=== PATIENT | male | born 1970 | race Hispanic/Latino ===

== ENCOUNTER 2017-08-08 08:28 | Inpatient (IN) | payer MEDICARE, MEDICAID ==
[2017-08-08 08:43] VITALS: BMI 19.5
[2017-08-08 09:11] LABS: BASO # 0.03 K/mm3 (0.0-2.0); BASO % 0.1 % (0.0-3.0); EOS % 0.1 % (1.5-5.0); GRAN # 19.6 (1.4-6.5); GRAN % 85.1 % (50.0-68.0); HEMOGLOBIN 11.7 g/dL (14.0-18.0); LYMPH # 2.1 (1.2-3.4); LYMPH % 9.3 % (22.0-35.0); MEAN CELL VOLUME 93.4 fl (80.0-105.0); MEAN CORPUSCULAR HEMOGLOBIN 32.3 pg (25.0-35.0); MEAN CORPUSCULAR HGB CONC 34.6 g/dl (31.0-37.0); MEAN PLATELET VOLUME 9.7 fl (7.0-11.0); MONO # 1.3 (0.1-0.6); MONO % 5.4 % (1.0-6.0); RBC 3.62 10^6/uL (3.5-6.1); RED CELL DISTRIBUTION WIDTH 13.5 % (11.5-14.5)
[2017-08-08 09:14] LABS: ALB/GLOB RATIO 1.5 (1.1-1.8); ALBUMIN 4.1 g/dL (3.0-4.8); ALT/SGPT 39 U/L (7-56); AST/SGOT 28 U/L (17-59); BLOOD UREA NITROGEN 29 mg/dL (7-21); CALCIUM 8.8 mg/dL (8.4-10.5); GFR AFRICAN-AMERICAN > 60; GFR NON-AFRICAN AMERICAN > 60
[2017-08-08 09:24] LABS: INR 0.99 (0.93-1.08); PARTIAL THROMBOPLASTIN TIME 27.5 Seconds (25.1-36.5); PROTHROMBIN TIME 11.4 SECONDS (9.4-12.5)
[2017-08-08 09:26] LABS: TROPONIN I < 0.01 ng/mL
[2017-08-08] MEDS ORDERED: Dextrose 5%/0.45% NS 1,000 ML IV SCH ×2 (09:30→09:45)
[2017-08-08 09:55] LABS: URINE BILIRUBIN NEGATIVE (NEGATIVE); URINE BLOOD NEGATIVE (NEGATIVE); URINE GLUCOSE (UA) 500 mg/dL (NEGATIVE); URINE LEUKOCYTE ESTERASE NEGATIVE Leu/uL (NEGATIVE); URINE PROTEIN 30 mg/dL (<30 mg/dL); URINE UROBILINOGEN 0.2 E.U./dL (<1 E.U./dL)
[2017-08-08 10:13] LABS: ARTERIAL BLOOD GAS HCO3 12.8 mmol/L (21-28); ARTERIAL BLOOD GAS O2 SAT 98.1 % (95-98); ARTERIAL BLOOD GAS PCO2 26 mm/Hg (35-45); ARTERIAL BLOOD GAS TCO2 13.6 mmol.L (22-28)
[2017-08-08 10:13] LABS: URINE COLOR YELLOW (YELLOW)
[2017-08-08 10:14] LABS: URINE APPEARANCE SLIGHT-CLOUDY (CLEAR)
[2017-08-08] MEDS ORDERED: Sodium Chloride 0.9% 1,000 ML IV STA (10:58)
[2017-08-08 11:00] LABS: URINE EPITHELIAL CELLS 0 - 2 /hpf (0-5); URINE RBC NEGATIVE /hpf (0-2); URINE WBC 0 - 2 /hpf (0-6)
--- NOTE | 2017-08-08 11:38 | ED PDOC ---
Arrival/HPI - General Chief Complaint: Medical Clearance Time Seen by Provider: 08/08/17 08:39 Historian: Patient, Other - History of Present Illness Narrative History of Present Illness (Text): 08/08/17 11:33 Patient is a 47 yo male with past medical history of insulin dependent diabetes , presents to the Emergency Department from cruise ship [place]" with diagnosis of diabetic ketoacidosis as per review of chart provided by [employer]. The patient is here with mother. Patient states that he "wasn't feeling well for past four days". Reportedly was feeling very tired and "didn't want to leave the ship", states he was "eating a lot". Patient reportedly felt sicker last night with nausea, loose stools, and vomiting. He denies fevers or chills. Denies bloody stools. Denies cough. Denies chest pain or shortness of breath. Patient reportedly was found to have elevated blood sugar on cruise ship with acidosis and elevated anion gap. He was reportedly given insulin bolus and drip. Patient currently states that he is hungry and thirsty. Denies any pain or discomfort. Past Medical History - Infectious Disease Hx of Infectious Diseases: None - Neurological Hx Seizures: Yes Other/Comment: Cerebral palsy - Endocrine/Metabolic Hx Diabetes Mellitus Type 1: Yes - Psychiatric Hx Substance Use: No Family/Social History Family/Social History: Unknown Family HX Smoking Status: Never Smoked Hx Alcohol Use: No Hx Substance Use: No Allergies/Home Meds Allergies/Adverse Reactions: Allergies morphine Allergy (Verified 08/08/17 18:18) RASH Home Medications: Home Meds Medication Instructions Recorded Confirmed Aspirin [Adult Low Dose Aspirin EC] 1 tab PO DAILY 08/08/17 08/08/17 Cholecalciferol (Vitamin D3) 1 tab PO DAILY 08/08/17 08/08/17 [Vitamin D3] Citalopram Hydrobromide 40 mg PO HS 08/08/17 08/09/17 [Citalopram HBr] Ibuprofen [Motrin Tab] 1 tab PO Q6H PRN 08/08/17 08/08/17 Insulin Aspart [Novolog Flexpen] 1 unit SC DAILY 08/08/17 08/08/17 Insulin Detemir [Levemir] 1 unit SC DAILY 08/08/17 08/08/17 Insulin Glargine, Recombina 16 unit SC DAILY 08/08/17 08/08/17 [Lantus] Insulin Lispro [Humalog Kwikpen 1 unit SC ACHS 08/08/17 08/08/17 U-100] Insulin Lispro [Humalog Kwikpen 1 unit SC BRK 08/08/17 08/08/17 U-100] LORazepam [Ativan] 1 tab PO PRN PRN 08/08/17 08/08/17 Lisinopril [Zestril] 5 mg PO DAILY 08/08/17 08/09/17 Phenobarbital [PHENobarbital Tab] 64.8 mg PO 2200 08/08/17 08/09/17 Rosuvastatin Calcium [Crestor] 10 mg PO HS 08/08/17 08/09/17 Carbamazepine [Carbamazepine ER] 200 mg PO BID 08/09/17 08/09/17 Carbamazepine [Carbamazepine ER] 800 mg PO BID 08/09/17 08/09/17 Famotidine [Pepcid] 40 mg PO HS 08/09/17 08/09/17 Phenobarbital [PHENobarbital Tab] 32.4 mg PO DAILY 08/09/17 08/09/17 Review of Systems - Review of Systems Constitutional: Fatigue. absent: Fevers Eyes: absent: Vision Changes ENT: absent: Hearing Changes Respiratory: absent: SOB Cardiovascular: absent: Chest Pain Gastrointestinal: Nausea, Vomiting. absent: Abdominal Pain, Constipation, Diarrhea, Hematochezia, Hematemesis, Anorexia Genitourinary Male: absent: Dysuria, Hematuria Musculoskeletal: absent: Back Pain, Neck Pain Skin: absent: Rash Neurological: Dizziness. absent: Headache, Focal Weakness, Gait Changes Endocrine: Polyuria, Polydipsia Hemo/Lymphatic: absent: Easy Bleeding Psychiatric: absent: Depression, Suicidal Ideation Physical Exam Vital Signs Reviewed: Yes Vital Signs Temp Pulse Resp BP Pulse Ox 08/08/17 15:45 78 18 142/71 100 08/08/17 11:58 97.9 F 81 17 116/53 L 99 08/08/17 08:50 97.3 F L 80 17 127/62 99 Temperature: Afebrile Blood Pressure: Normal Pulse: Regular Appearance: Positive for: Non-Toxic, Comfortable Mental Status: Positive for: Alert and Oriented X 3 Finger Stick Blood Glucose: 352 - Systems Exam Head: Present: Atraumatic Pupils: Present: Other (no acute changes in his visual acuity) Conjunctiva: No: Injected Mouth: Present: Dry Pharnyx: No: ERYTHEMA Neck: Present: Normal Range of Motion. No: Meningeal Signs Respiratory/Chest: Present: Clear to Auscultation. No: Respiratory Distress Cardiovascular: Present: Regular Rate and Rhythm Abdomen: No: Tenderness Upper Extremity: No: Cyanosis Lower Extremity: No: Edema Neurological: Present: Other (at his baseline, no acute focal weakness noted) Skin: Present: Pale Psychiatric: Present: Alert, Normal Insight, Normal Concentration Medical Decision Making ED Course and Treatment: 08/08/17 8:38 Upon arrival to the Emergency department, I reviewed patient's record provided by the [facility]. The following blood glucose levels were noted at the [facility] at the mentioned times: August 08, 2017 00:30 Blood glucose level: 467 mg/dL August 08, 2017 1:30 Blood glucose level: 390 mg/dL August 08, 2017 02:30 Blood glucose level: 271 mg/dL August 08, 2017 03:30 Blood glucose level: 217 mg/dL August 08, 2017 04:23 Blood glucose level: 184 mg/dL August 08, 2017 05:15 Blood glucose level: 218 mg/dL August 08, 2017 05:30 Blood glucose level: 225 mg/dL August 08, 2017 05:44 Blood glucose level: 238 mg/dL August 08, 2017 06:15 Blood glucose level: 277 mg/dL August 08, 2017 06:30 Blood glucose level: 268 mg/dL August 08, 2017 06:45 Blood glucose level: 268 mg/dL The following laboratory results were noted at the [facility] at the mentioned times: August 07, 2017 23:05 Hct = 41% Hb = 13.9 Creatinine= 1.1 mg/dL Glucose = 562 mg/dL Chloride= 102 mEq/l Sodium= 135 mEq/dL Potassium = 5.2 mEq/dL TCO2 = 12 mmol/L Anion gap = 27 mmol/L iCa = 1.15 mmol/L Urea nitrogen (pre-dialysis)= 34 pH= 7.168 pCO2 = 25.1 torr pO2 = 60 torr HCO3 = 9.1 mEq/L Base excess= -19 mEq/L sO2= 84 Lactate= 2.91 mg/dL August 08, 2017 01:30 Hct = 39% Hb = 13.3 MCHC= 33 g/dL Total WBC= 27.5 x10^9/L % Granulocytes = 91% % Lymphocytes+ monocytes= 9% Platelets = 377 x10^9/L Glucose = 379 mg/dL Sodium= 141 mEq/dL Potassium = 3.7 mEq/dL August 08, 2017 03:44 Hct = 34% Hb = 11.6 Glucose = 203 mg/dL Sodium= 143 mEq/dL Potassium = 3.8 mEq/dL August 08, 2017 06:05 Hct = 32% Hb = 10.9 Glucose = 229 mg/dL Sodium= 140 mEq/dL Potassium = 4.9 mEq/dL 08/08/17 12:51 I reviewed patient's record from [employer]. Insulin administration as reported FROM [employer] reviewed. Patient had been given insulin bolus and was started on insulin drip on cruise ship prior to arrival. They had held insulin drip as blood sugar had reportedly dropped to 184 on cruise ship. I reviewed history with transport team upon arrival. They states that his blood sugar was "330" prior to transport. Patient had received bolus of insulin from medics PRIOR to transport. As per review of physician note from [employer], patient was felt to have conflicting doses of insulin. THUS PATIENT WAS MONITORED CLOSELY WITH FREQUENT BLOOD SUGAR CHECK ON ARRIVAL. Patient upon arrival to the Emergency Department was found to be alert, oriented, stating he was hungry and thirsty. He denied any headache or chest pain or shortness of breath. He denies nausea or palpitations. Insulin drip had been discontinued PRIOR to arrival. As there was question of patient's prior insulin administration and patient with no nausea or discomfort , iv line established and labs obtained Labs obtained here in the ED reveals CO2 of 18. ABG reveals ph of 7.30. When compared to ship's labs this represents improvement in pH and CO2. Patient is demanding something to eat, he denies nausea pain or discomfort. He has been advised of his diagnosis of DKA, states he has had this in past. He is from [place], [place]. IV fluids ordered. Patient evaluated by pricing/signage team member in ED as I feel he is at risk for labile blood sugar and requires frequent chemistry and blood sugar checks. I consulted with scarf gluer Dr. Ellis upon arrival. I reviewed patient's labs from cruise ship and current presentation. Based on patient's drop in blood sugar noted on cruise ship reviewed, D5 1/2 NS was ordered BUT HELD pending reassessment of blood sugar due to RISK of drop in blood sugar under 200. However D51/2NS WAS NOT GIVEN as patient noted to have blood sugar of 260. Dr. Elsa Olmedo on-call physician notified of patient, he accepts patient to his service and evaluated patient in the Emergency Department. On re-evaluation, patient is requesting to eat and have "diet soda". I have explained to him risks of noncompliance with soda and have advised him he is not to have ant staff or family provide him with any soda. He is continually asking to eat and states "I want coffee where is my coffee". Leukocytosis noted. Currently afebrile. Initial lactate unremarkable. Not tachycardic or hypotensive. Continued monitoring and serial exams in the Emergency Department. On re-assessment, he is again noted to be hyperglycemic and K 5.8. Repeat chemistry suggests worsening acidosis and pricing/signage team member updated. Insulin bolus ordered. Insulin drip ordered. IV fluids ordered. Dr. Ford, ICU notified and patient will be admitted to ICU as I feel patient with labile blood sugar. Dr. Ellis, endocrincologist again notifed and updated with repeat labs and will present to ED to manage insulin and fluids. 08/08/17 13:25 08/08/17 13:30 Dr. Ellis, scarf gluer, presented to the Emergency department. Patient's most recent blood work was reviewed and Dr. Ellis was made aware of patient's potassium level of 5.5, CO2 level of 11 and serum glucose level of 547. As per Dr. Ellis's request, IV hydration has been reviewed and ordered. Patient has already received 6 units of IV regular insulin. Dr. Ellis requested additional 10 units of IV insulin and with her consultation, insulin drip has been ordered. As per scarf gluer, it is to be started at low dose algorithm. Patient to be admitted to the ICU. Patient updated with treatment plan. ICU physician updated. On re-exam, nausea resolved. Alert, conversive. Denies chest pain or shortness of breath. Heart rate 84. Blood pressure 135/69. 08/10/17 10:45 - Critical Care Critical Care Minutes: 60 minutes - Lab Interpretations Microbiology Results: Microbiology Results 08/08/17 09:45 Urine Urine Culture - Final No Growth (<1,000 CFU/ML) Lab Results: 08/08/17 08:50 08/08/17 08:50 Lab Results 08/08/17 10:53: POC Glucose (mg/dL) 352 H 08/08/17 09:52: pCO2 26 L, pO2 100.0, HCO3 12.8 L, ABG pH 7.30 L, ABG Total CO2 13.6 L, ABG O2 Saturation 98.1 H, ABG Base Excess -11.9 L, ABG Potassium 4.2, Glucose 330 H, Lactate 0.9, FiO2 21.0, Sodium 135.0, Chloride 109.0 H, Arterial Blood Potassium 4.2 08/08/17 09:45: Urine Color Yellow, Urine Appearance Slight-cloudy, Urine pH 6.0 , Ur Specific [place] 1.020, Urine Protein 30 H, Urine Glucose (UA) 500 H, Urine Ketones 40 H, Urine Blood Negative, Urine Nitrate Negative, Urine Bilirubin Negative, Urine Urobilinogen 0.2, Ur Leukocyte Esterase Negative, Urine RBC Negative, Urine WBC 0 - 2, Ur Epithelial Cells 0 - 2 08/08/17 09:13: POC Glucose (mg/dL) 264 H 08/08/17 08:50: Sodium 139, Potassium 5.2 H, Chloride 107, Carbon Dioxide 18 L, Anion Gap 19, BUN 29 H, Creatinine 0.7 L, Est GFR ( Amer) > 60, Est GFR ( Non-Af Amer) > 60, Random Glucose 292 H, Calcium 8.8, Total Bilirubin 0.3, AST 28, ALT 39, Alkaline Phosphatase 81, Lactate Dehydrogenase 401, Total Creatine Kinase 57, Troponin I < 0.01, Total Protein 6.8, Albumin 4.1, Globulin 2.8, Albumin/Globulin Ratio 1.5 08/08/17 08:50: PT 11.4, INR 0.99, APTT 27.5 08/08/17 08:50: WBC 23.0 H, RBC 3.62, Hgb 11.7 L, Hct 33.8 L, MCV 93.4, MCH 32.3 , MCHC 34.6, RDW 13.5, Plt Count 369, MPV 9.7, Gran % 85.1 H, Lymph % (Auto) 9.3 L, [place] % (Auto) 5.4, Eos % (Auto) 0.1 L, Baso % (Auto) 0.1, Gran # 19.60 H , Lymph # (Auto) 2.1, [place] # (Auto) 1.3 H, Eos # (Auto) 0.0, Baso # (Auto) 0.03 08/08/17 08:34: POC Glucose (mg/dL) 261 H - RAD Interpretation Radiology Orders: 08/08/17 08:46 CHEST PORTABLE [RAD] Stat - Medication Orders Current Medication Orders: Heparin Sodium (Porcine) (Heparin) 5,000 units SC Q8H [facility] PRN Reason: Protocol Last Admin: 08/10/17 06:16 Dose: Not Given Non-Admin Reason: Patient Refused Sodium Chloride (Sodium Chloride 0.45%) 1,000 mls @ 40 mls/hr IV .Q24H [facility] Last Admin: 08/10/17 09:55 Dose: 40 mls/hr eMAR Start Stop Document 08/10/17 09:55 DSZ (Rec: 08/10/17 09:55 DSZ [facility] [id number]) Intravenous Solution Start Date 08/10/17 Start Time 09:55 Insulin Detemir (Levemir) 18 unit SC HS [facility] Insulin Human Lispro (Humalog) 10 units SC AC [facility] Last Admin: 08/10/17 07:30 Dose: Not Given Non-Admin Reason: BP Parameters Not Met MAR Blood Glucose Document 08/10/17 07:30 DSZ (Rec: 08/10/17 10:02 DSZ [facility] [id number]) Blood Glucose Finger Stick Blood Glucose (70-120) 145 Insulin Human Lispro (Humalog Low) 0 units SC ACHS [facility] PRN Reason: Protocol Last Admin: 08/10/17 07:49 Dose: Not Given Non-Admin Reason: Blood Sugar Parameter Carbamazepine [ Carbamazepine Er] 400 Mg 800 mg PO Q12 [facility] Last Admin: 08/10/17 09:58 Dose: 800 mg Carbamazepine [ Carbamazepine Er] 200 Mg 200 mg PO Q12 [facility] Last Admin: 08/10/17 10:01 Dose: 200 mg Pantoprazole Sodium (Protonix Ec Tab) 40 mg PO 0600 [facility] Last Admin: 08/10/17 10:00 Dose: 40 mg Phenobarbital (Phenobarbital Tab) 64.8 mg PO 2200 [facility] Last Admin: 08/09/17 22:57 Dose: 64.8 mg Behavioural Document 08/09/17 22:57 IMT (Rec: 08/09/17 22:57 IMT [id number]) Maintenance Maintenance Dose Yes Nonmedicinal Nonmedicinal Interventions Redirect Behavior Behavior for Medication: Anxiety Insomnia Re-Assess: Reassess Psych Meds Document 08/09/17 23:57 IMT (Rec: 08/10/17 03:46 [id number]) Reassess Psych Med Effective Phenobarbital (Phenobarbital Tab) 32.4 mg PO DAILY [facility] Last Admin: 08/10/17 09:59 Dose: 32.4 mg Behavioural Document 08/10/17 09:59 DSZ (Rec: 08/10/17 09:59 DSZ [facility] [id number]) Maintenance Maintenance Dose Yes Behavior Behavior Comment seizure Discontinued Medications Dextrose (Dextrose 50% Inj) 50 ml IVP STAT STA Stop: 08/10/17 06:39 Last Admin: 08/10/17 06:42 Dose: 50 ml IVP Administration Document 08/10/17 06:42 IMT (Rec: 08/10/17 06:42 [id number][facility] Charges for Administration # of IVP Administrations 1 Dextrose/Sodium Chloride (Dextrose 5%/0.45% Ns 1000 Ml) 1,000 mls @ 200 mls/hr IV .Q5H [facility] Last Admin: 08/08/17 09:42 Dose: 200 mls/hr eMAR Start Stop Document 08/08/17 09:42 GMD (Rec: 08/08/17 09:43 GMD [id number]) Intravenous Solution Start Date 08/08/17 Start Time 09:42 End Date 08/08/17 End time 10:15 Total Infusion Time 33 Sodium Chloride (Sodium Chloride 0.9%) 1,000 mls @ 1,000 mls/hr IV .Q1H STA Stop: 08/08/17 11:57 Last Admin: 08/08/17 11:35 Dose: 1,000 mls/hr eMAR Start Stop Document 08/08/17 11:35 GMD (Rec: 08/08/17 11:35 GMD [id number]) Intravenous Solution Start Date 08/08/17 Start Time 11:35 End Date 08/08/17 End time 12:35 Total Infusion Time 60 Insulin Human Regular 100 (units/ Sodium Chloride) 100 mls @ 6 mls/hr IV .[id number] PRN; Protocol; 6 UNITS/HR PRN Reason: TITRATE PER MD ORDER Last Titration: 08/08/17 22:00 Dose: 0 units/hr, 0 mls/hr Titration Intervention Document 08/08/17 22:00 AOM (Rec: 08/09/17 07:51 AOM [id number]) Titration Intake Titration Intake 1.5 Cumulative Intake 16.5 Cumulative Intake (Rx) 16.5 Waste Amount 0 Container Volume 83.5 Titration Dosing Titration Dose 0 IV Rate 0 Intake/Decrease Paused Cumulative Dose 16.5 Sodium Chloride (Sodium Chloride 0.9%) 1,000 mls @ 150 mls/hr IV .Q6H40M [facility] Last Admin: 08/08/17 16:20 Dose: 150 mls/hr eMAR Start Stop Document 08/08/17 16:20 RAMOM (Rec: 08/08/17 16:20 RAMOM [id number]) Intravenous Solution Start Date 08/08/17 Start Time 16:00 Ceftriaxone Sodium (Rocephin 1 Gram Ivpb) 1 gm in 100 mls @ 100 mls/hr IVPB DAILY [facility] PRN Reason: Protocol Last Admin: 08/10/17 09:55 Dose: 100 mls/hr eMAR Start Stop Document 08/10/17 09:55 DSZ (Rec: 08/10/17 09:55 DSZ [id number]) Intravenous Solution Start Date 08/10/17 Start Time 09:55 Dextrose/Sodium Chloride (Dextrose 5%/0.9% Ns 1000 Ml) 1,000 mls @ 150 mls/hr IV .Q6H40M [facility] Last Admin: 08/08/17 22:00 Dose: 150 mls/hr eMAR Start Stop Document 08/08/17 22:00 AOM (Rec: 08/08/17 22:02 AOM [id number]) Intravenous Solution Start Date 08/08/17 Start Time 22:00 End Date 08/09/17 Insulin Detemir (Levemir) 15 unit SC [facility] Last Admin: 08/08/17 22:31 Dose: 15 u MAR Blood Glucose Document 08/08/17 22:31 AOM (Rec: 08/08/17 22:32 AOM [id number]) Blood Glucose Finger Stick Blood Glucose (70-120) 129 Subcutaneous Administrations Document 08/08/17 22:31 AOM (Rec: 08/08/17 22:32 AOM [id number]) Injection Site MAR Injection Site Left Arm Charges for Administration # of Subcutaneous Administrations 1 Insulin Detemir (Levemir) 20 unit SC [facility] Last Admin: 08/09/17 22:54 Dose: 20 units MAR Blood Glucose Document 08/09/17 22:54 IMT (Rec: 08/09/17 22:54 IMT [id number]) Blood Glucose Finger Stick Blood Glucose (70-120) 157 Subcutaneous Administrations Document 08/09/17 22:54 IMT (Rec: 08/09/17 22:54 IMT [id number]) Injection Site MAR Injection Site Left Arm Charges for Administration # of Subcutaneous Administrations 1 Insulin Human Regular (Humulin R) 6 units IV STAT STA Stop: 08/08/17 12:50 Last Admin: 08/08/17 13:02 Dose: 6 unit eMAR Start Stop Document 08/08/17 13:02 GMD (Rec: 08/08/17 13:02 GMD [id number]) Intravenous Solution Start Date 08/08/17 Start Time 13:02 Insulin Human Regular (Humulin R) 10 units IV STAT STA Stop: 08/08/17 13:33 Last Admin: 08/08/17 13:59 Dose: 10 unit eMAR Start Stop Document 08/08/17 13:59 GMD (Rec: 08/08/17 13:59 GMD [id number]) Intravenous Solution Start Date 08/08/17 Start Time 13:59 Insulin Human Regular (Humulin R Med) 0 units SC [facility] PRN Reason: Protocol Last Admin: 08/09/17 11:37 Dose: 7 units MAR Blood Glucose Document 08/09/17 11:37 RAMOM (Rec: 08/09/17 11:37 RAMOM [id number]) Blood Glucose Finger Stick Blood Glucose (70-120) 342 Subcutaneous Administrations Document 08/09/17 11:37 RAMOM (Rec: 08/09/17 11:37 RAMOM [id number] Injection Site MAR Injection Site Right Arm Charges for Administration # of Subcutaneous Administrations 1 Ondansetron HCl (Zofran Inj) 4 mg IVP ONCE ONE Stop: 08/08/17 13:37 Last Admin: 08/08/17 13:59 Dose: 4 mg IVP Administration Document 08/08/17 13:59 GMD (Rec: 08/08/17 13:59 GMD [id number]) Charges for Administration # of IVP Administrations 1 Phenobarbital (Phenobarbital Tab) 64.8 mg PO [facility] Last Admin: 08/08/17 22:59 Dose: 64.8 mg Behavioural Document 08/08/17 22:59 AOM (Rec: 08/08/17 23:00 AOM [id number]) Maintenance Maintenance Dose Yes Nonmedicinal Nonmedicinal Interventions Give food/fluids Re-Assess: Reassess Psych Meds Document 08/08/17 23:59 AOM (Rec: 08/09/17 01:05 AOM [id number]) Reassess Psych Med Effective Pneumococcal Polyvalent Vaccine (Pneumovax 23 Vaccine) 0.5 ml IM .ONCE ONE Stop: 08/08/17 20:33 Potassium Chloride (K-Dur 20 Meq Er Tab) 20 meq PO ONCE ONE Stop: 08/09/17 08:29 Last Admin: 08/09/17 09:34 Dose: 20 meq Potassium Chloride (K-Dur 20 Meq Er Tab) 20 meq PO ONCE ONE Stop: 08/10/17 08:22 Last Admin: 08/10/17 09:59 Dose: 20 meq Sodium Polystyrene Sulfonate (Kayexalate Susp) 15 gm PO ONCE ONE Stop: 08/08/17 15:02 Last Admin: 08/08/17 15:40 Dose: 15 gm - Scribe Statement The provider has reviewed the documentation as recorded by the Cindyibe Chalo Genao. All medical record entries made by the Cindyibana maria were at my direction and personally dictated by me. I have reviewed the chart and agree that the record accurately reflects my personal performance of the history, physical exam, medical decision making, and the department course for this patient. I have also personally directed, reviewed, and agree with the discharge instructions and disposition. Disposition/Present on Arrival - Present on Arrival Any Indicators Present on Arrival: Yes History of DVT/PE: No History of Uncontrolled Diabetes: Yes Urinary Catheter: No History of Decub. Ulcer: No History Surgical Site Infection Following: None - Disposition Have Diagnosis and Disposition been Completed?: Yes Diagnosis: Diabetic ketoacidosis, Hyperglycemia, Leukocytosis Disposition: HOSPITALIZED Disposition Time: 10:30 Patient Plan: Admission, ICU Patient Problems: Current Active Problems Problem Status Onset Diabetic ketoacidosis Acute Hyperglycemia Acute Leukocytosis Acute Condition: CRITICAL
--- NOTE | 2017-08-08 11:49 | CARD ---
APPROVED REPORT EKG Measurement Heart [id number] <Conclusion> Normal sinus rhythm Normal ECG
[2017-08-08] MEDS ORDERED: Insulin Regular 1 UNITS/0.01 ML ML IV STA ×2 (12:49→13:32)
[2017-08-08] MEDS ORDERED: Insulin Regular 100 UNITS in Sodium Chloride 0.9% 99 ML IV PRN (12:55)
--- NOTE | 2017-08-08 12:55 | CON ---
DATE: 08/08/2017 HISTORY OF PRESENT ILLNESS: The patient is seen and examined at bedside. This is a 47-year-old gentleman with longstanding history of diabetes type 1, who did not feel very well over the last few days when he was on a cruise ship and was found to have highly elevated blood glucose. He received insulin drip, which appears to be more than needed based on ship record and was taken to [facility] for further management and monitoring. No nausea. No vomiting. No diarrhea. No constipation. In fact, the patient is eating and drinking at the time of evaluation by ICU. Out of concern for insulin "overdose" in the setting of potential DKA, ICU consult was called. PAST MEDICAL HISTORY: Diabetes type 1. FAMILY HISTORY: Noncontributory. ALLERGIES: MORPHINE. SOCIAL HISTORY: No alcohol or illicit drug abuse. No tobacco smoking. PHYSICAL EXAMINATION: ENT: Head and neck atraumatic. LUNGS: Clear to auscultation bilaterally. HEART: Regular rate and rhythm. S1 and S2 normal. ABDOMEN: Soft, nontender and nondistended. MUSCULOSKELETAL: The patient has muscle contraction in the right upper extremity. SKIN: Moist. PSYCH: The patient is alert, awake and oriented x3, comfortable. LABORATORY DATA: WBC 23, hemoglobin 11.7, platelet count 369. Sodium 139, potassium 5.2, chloride 107, carbon dioxide 18, BUN 29, creatinine 0.7. Glucose 264; however, on blood gas, glucose 330. INR 0.99, PTT 27.5. Urine is negative for leukocyte esterase and nitrites. ABG showed 7.3/26/100. Lactic acid 0.9. Chest x-ray: No acute pulmonary disease. ASSESSMENT AND PLAN: This is 47-year-old gentleman, who presented with poorly-controlled diabetes/DKA, who was started on insulin drip on the ship ; however, they were not able to achieve their goals and the patient was taken to [facility] for further management and evaluation. At present time, the patient's blood glucose is mildly to moderately elevated. His anion gap is 14, which is slightly elevated. However; his pH essentially improved from 7.1 according to ship records to 7.3 (presently). His potassium is slightly elevated at 5.2. I would give him insulin 10 units IV and then recheck his Accu-Chek. Once they are done, I would repeat chemistry and ABG. I would continue with IV fluid rehydration and oral hydration and if repeated chemistry revealed narrowing anion gap to below 14, then I would proceed with longer-acting subcutaneous formulation of insulin. I would continue with Accu-Chek every 2-4 hours and BMP every 6-8 hours. Leukocytosis can be reactive. There is no clear source of potential infection (CXR-NAPD, abdo exam is benign, UA-no LE nor UN, no lactic acidosis). I think risk of starting empiric antibiotics at present time higher than holding them off (e.g C. diff colitis, emergence of resistance pathogens etc). However, blood culture, urine culture could be sent. We will continue with deep venous thrombosis, gastrointestinal prophylaxis. Addendum: was called by ER physicians, who reported that BG started trending up and patient became less comfortable-->will take patient to icu, start insulin drip (held by ER), IVF/NS, BMP q4, accucheck q1h. Once AG closed-->switched to sc longer acting insulin. dvt/gi prophylaxis ccm time 40 min Eugene Ford MD RITA
[2017-08-08] MEDS ORDERED: Sodium Chloride 0.9% 1,000 ML IV SCH (13:15)
[2017-08-08 13:21] LABS: ALB/GLOB RATIO 1.7 (1.1-1.8); ALBUMIN 4.2 g/dL (3.0-4.8); ALT/SGPT 46 U/L (7-56); AST/SGOT 55 U/L (17-59); BLOOD UREA NITROGEN 27 mg/dL (7-21); CALCIUM 8.9 mg/dL (8.4-10.5); GFR AFRICAN-AMERICAN > 60; GFR NON-AFRICAN AMERICAN > 60
[2017-08-08] MEDS ORDERED: Sod Polystyrene Sulf 15 gm/60 ml Susp PO ONE (15:01)
[2017-08-08 16:06] LABS: BLOOD UREA NITROGEN 26 mg/dL (7-21); CALCIUM 8.4 mg/dL (8.4-10.5); GFR AFRICAN-AMERICAN > 60; GFR NON-AFRICAN AMERICAN > 60
[2017-08-08] MEDS: cefTRIAXone 1 gm 1 GM/100 ML BAG IVPB SCH (16:22)
[2017-08-08] MEDS ORDERED: Insulin Reg-MEDIUM-Coverage SC SCH (16:30)
--- NOTE | 2017-08-08 16:57 | RAD ---
HISTORY: weakness COMPARISON: No prior. FINDINGS: LUNGS: Lung jones are clear. There is a tubular, catheter like structure overlying the right medial lung apex and upper lung field of uncertain etiology. This could conceivably represent a catheter remnant. Follow-up CT scan could be performed further evaluation. There is also a battery pack overlying the left lateral upper midchest within a metallic lead extends superiorly over the base of the neck on the left side. PLEURA: No significant pleural effusion identified, no pneumothorax apparent. CARDIOVASCULAR: Normal. OSSEOUS STRUCTURES: No significant abnormalities. VISUALIZED UPPER ABDOMEN: Normal. OTHER FINDINGS: None. IMPRESSION: Lung jones are clear. There is a tubular, catheter like structure overlying the right medial lung apex and upper lung field of uncertain etiology. This could conceivably represent a catheter remnant. Follow-up CT scan could be performed further evaluation. There is also a battery pack overlying the left lateral upper midchest within a metallic lead extends superiorly over the base of the neck on the left side.
[2017-08-08 18:13] LABS: BLOOD UREA NITROGEN 23 mg/dL (7-21); CALCIUM 8.3 mg/dL (8.4-10.5); GFR AFRICAN-AMERICAN > 60; GFR NON-AFRICAN AMERICAN > 60
[2017-08-08] MEDS ORDERED: Pneumococcal 23-Valent Vaccine IM ONE (20:32)
[2017-08-08] MEDS ORDERED: Dextrose 5%/0.9% NS 1,000 ML IV SCH (21:15)
[2017-08-08 21:28] LABS: BLOOD UREA NITROGEN 22 mg/dL (7-21); CALCIUM 8.3 mg/dL (8.4-10.5); GFR AFRICAN-AMERICAN > 60; GFR NON-AFRICAN AMERICAN > 60
[2017-08-08] MEDS ORDERED: Insulin Detemir 100 units/ml Vial (Levemir) SC SCH (22:00)
[2017-08-08] MEDS: Insulin Reg-MEDIUM-Coverage SC SCH (22:28)
[2017-08-09 01:25] LABS: BLOOD UREA NITROGEN 22 mg/dL (7-21); CALCIUM 7.8 mg/dL (8.4-10.5); GFR AFRICAN-AMERICAN > 60; GFR NON-AFRICAN AMERICAN > 60
--- NOTE | 2017-08-09 02:52 | CON ---
ENDOCRINOLOGY CONSULTATION LOCATION: In ICU 129, room 3. HISTORY OF PRESENT ILLNESS: This is a 47-year-old male with known history of type 1 insulin-dependent diabetes, presenting here with intractable nausea, dyspepsia and vomiting, and actually a passenger in a cruise-liner, is being admitted here to ICU for further evaluation and management of diabetic ketoacidosis. PAST MEDICAL HISTORY: As mentioned above, history of type 1 insulin-dependent diabetes, on Levemir taken as 14 units subcu once daily in the morning and has a sliding scale for Humalog insulin given before each meal as noted. He admits however to extremes of glycemic fluctuations over the last few weeks prior to admission as noted. History of hypertension and dyslipidemia. FAMILY HISTORY: Positive for hypertension and diabetes. SOCIAL HISTORY: The patient has a supportive family. No known substance use. REVIEW OF SYSTEMS: As mentioned above, admits to generalized body weakness with progressive bouts of dizziness and lightheadedness with bifrontal headaches and visual blurring worse on the day of admission. No chest pains or palpitations or PND. His oral intake has been nil and suboptimal, with supervening nausea, dyspepsia and intractable vomiting. Also admits to marked polyuria, nocturia and polydipsia. PHYSICAL EXAMINATION: GENERAL: A male, in no apparent distress. VITAL SIGNS: With a blood pressure of 140/80, pulse of 100 beats per minute and regular, temperature 98, respirations 20, height is 5 feet 7 inches, weight is 125 pounds. HEENT: Head normocephalic. Eyes anicteric with pink conjunctivae. Funduscopy not possible at this time. Ears, nose and throat otherwise normal. NECK: Supple. Thyroid gland is normal in size. No carotid bruits or cervical adenopathy. CARDIOPULMONARY: Adynamic precordium. S1 and S2 is rapid and regular. Lungs are clear to auscultation. ABDOMEN: Flat, soft with positive bowel sounds. EXTREMITIES: No peripheral edema. Pulses are +2 bilaterally. LABORATORY: The latest chemistry showed a BUN of 27, sodium 136, potassium 5.8, chloride 103, CO2 of 11. Glucose is 547 and creatinine 0.8. Initial CO2 actually was 18 following hydration as noted on admission. ASSESSMENT: This is a 47-year-old male with uncontrolled and decompensated type 1 insulin-dependent diabetes presenting here with diabetic ketoacidosis and dehydration as noted. PLAN: Plan of management will clearly need vigorous IV hydration with normal saline infusion as ordered, with concomitant initiation of an insulin drip infusion and detailed orders have been given. Discussed plan of care with the Emergency Room physician, Dr. Allen, regarding the aforementioned plan of care. We will obtain serial chemistries and supplement accordingly as needed. As his oral intake improves and also as his acidosis resolves to at least CO2 of above 18 to 20, then may discontinue the insulin drip and switch him over to a more physiologic basal and bolus insulin drug combination as indicated. We will obtain serial chemistries and supplement accordingly as needed. We will follow with you. Winnie Ellis MD
[2017-08-09] MEDS: Pantoprazole 40 mg EC Tab PO SCH (06:08)
[2017-08-09 06:32] LABS: HEMOGLOBIN 10.2 g/dL (14.0-18.0); MEAN CELL VOLUME 91.9 fl (80.0-105.0); MEAN CORPUSCULAR HEMOGLOBIN 31.8 pg (25.0-35.0); MEAN CORPUSCULAR HGB CONC 34.6 g/dl (31.0-37.0); MEAN PLATELET VOLUME 9.4 fl (7.0-11.0); RBC 3.21 10^6/uL (3.5-6.1); RED CELL DISTRIBUTION WIDTH 13.5 % (11.5-14.5)
[2017-08-09 06:34] LABS: ALB/GLOB RATIO 1.2 (1.1-1.8); ALBUMIN 3.1 g/dL (3.0-4.8); ALT/SGPT 71 U/L (7-56); AST/SGOT 71 U/L (17-59); BLOOD UREA NITROGEN 21 mg/dL (7-21); CALCIUM 8.1 mg/dL (8.4-10.5); GFR AFRICAN-AMERICAN > 60; GFR NON-AFRICAN AMERICAN > 60; HDL CHOLESTEROL 66 mg/dL (29-60)
[2017-08-09 06:40] LABS: LDL CHOLESTEROL 60 mg/dL (0-129)
[2017-08-09] MEDS: Insulin Reg-MEDIUM-Coverage SC SCH ×2 (07:52→11:37)
[2017-08-09] MEDS ORDERED: Potassium Chloride 20 mEq ER Tab PO ONE (08:28)
[2017-08-09] MEDS: cefTRIAXone 1 gm 1 GM/100 ML BAG IVPB SCH (09:33)
[2017-08-09] MEDS ORDERED: CARBAMAZEPINE PO SCH ×3 (10:00→10:15)
[2017-08-09] MEDS ORDERED: CARBAMAZEPINE 200 MG PO SCH ×2 (10:15→22:00)
--- NOTE | 2017-08-09 10:45 | CP.CCUPN ---
<Tamara Jackson - Last Filed: 08/09/17 13:58> CCU Subjective - Physician Review Subjective (Free Text): 08/09/17 10:44 Pt seen comfortable. No acute complaint. tolerate breakfast CCU Objective - Vital Signs / Intake & Output Vital Signs (Last 4 hours): Vital Signs Pulse Resp BP Pulse Ox 08/09/17 09:00 75 20 132/63 08/09/17 08:00 65 25 H 112/50 L 100 08/09/17 07:00 57 L 19 138/81 99 Intake and Output (Last 8hrs): Intake & Output 08/08/17 08/09/17 08/09/17 22:59 06:59 14:59 Intake Total 596.5 1457 Output Total 700 700 Balance -103.5 757 Weight 125 lb Intake: IV 476.5 607 0.9 NS 450 600 insulin 10 7 Oral 120 850 Output: Urine 700 700 Urine, Voided 700 700 Other: Voiding Method Urinal # Voids Urine, Voided 2 # Bowel Movements 0 0 - Physical Exam Head: Positive for: Atraumatic Pupils: Positive for: Other (no acute changes in his visual acuity; strabismus) Conjunctiva: Negative for: Injected Mouth: Positive for: Moist Mucous Membranes Pharnyx: Negative for: ERYTHEMA Neck: Positive for: Normal Range of Motion. Negative for: Meningeal Signs Respiratory/Chest: Positive for: Clear to Auscultation. Negative for: Respiratory Distress Cardiovascular: Positive for: Regular Rate and Rhythm Abdomen: Negative for: Tenderness Upper Extremity: Negative for: Cyanosis Lower Extremity: Negative for: Edema Neurological: Positive for: Other (at his baseline, no acute focal weakness noted; some contracture in R UE/thinner leg R, chronic) Skin: Positive for: Pale Psychiatric: Positive for: Alert, Normal Insight, Normal Concentration - Medications Active Medications: Active Medications Generic Name Dose Route Start Last Admin Trade Name Freq PRN Reason Stop Dose Admin Heparin Sodium (Porcine) 5,000 units 08/08/17 13:15 08/09/17 06:07 Heparin SC 5,000 units Q8H [facility] Administration Protocol Ceftriaxone Sodium 1 gm in 100 mls @ 100 mls/hr 08/08/17 15:15 08/09/17 09:33 Rocephin 1 Gram Ivpb IVPB 100 mls/hr DAILY [facility] Administration Protocol Insulin Detemir 15 unit 08/08/17 22:00 08/08/17 22:31 Levemir SC 15 u HS [facility] Administration Insulin Human Regular 0 units 08/08/17 22:00 08/09/17 07:52 Humulin R Med SC Not Given ACHS [facility] Protocol Carbamazepine [ 800 mg 08/09/17 10:30 Carbamazepine Er] PO 400 Mg Q12 [facility] Carbamazepine [ 200 mg 08/09/17 10:30 Carbamazepine Er] PO 200 Mg Q12 [facility] Pantoprazole Sodium 40 mg 08/09/17 06:00 08/09/17 06:08 Protonix Ec Tab PO 40 mg 0600 [facility] Administration Phenobarbital 64.8 mg 08/09/17 22:00 Phenobarbital Tab PO 2200 [facility] Phenobarbital 32.4 mg 08/09/17 10:30 08/09/17 10:36 Phenobarbital Tab PO 32.4 mg DAILY [facility] Administration - Patient Studies Lab Studies: Lab Studies 08/09/17 08/09/17 08/09/17 Range/Units 07:32 06:00 06:00 WBC (4.5-11.0) 10^3/ul RBC (3.5-6.1) 10^6/uL Hgb (14.0-18.0) g/dL Hct (42.0-52.0) % MCV (80.0-105.0) fl MCH (25.0-35.0) pg MCHC (31.0-37.0) g/dl RDW (11.5-14.5) % Plt Count (120.0-450.0) 10^3/uL MPV (7.0-11.0) fl Sodium 140 (132-148) mmol/L Potassium 3.5 L (3.6-5.0) mmol/L Chloride 108 H (98-107) mmol/L Carbon Dioxide 24 (21-33) mmol/L Anion Gap 11 (10-20) BUN 21 (7-21) mg/dL Creatinine 0.6 L (0.8-1.5) mg/dl Est GFR ( Amer) > 60 Est GFR (Non-Af Amer) > 60 POC Glucose (mg/dL) 142 H (65-110) mg/dL Random Glucose 187 H (70-110) mg/dL Calcium 8.1 L (8.4-10.5) mg/dL Phosphorus 2.2 L (2.5-4.5) mg/dL Total Bilirubin 0.2 (0.2-1.3) mg/dL AST 71 H D (17-59) U/L ALT 71 H (7-56) U/L Alkaline Phosphatase 63 (38-126) U/L Total Protein 5.8 (5.8-8.3) g/dL Albumin 3.1 (3.0-4.8) g/dL Globulin 2.6 gm/dL Albumin/Globulin Ratio 1.2 (1.1-1.8) Triglycerides 89 (35-160) mg/dL Cholesterol 143 (130-200) mg/dL LDL Cholesterol Direct 60 (0-129) mg/dL HDL Cholesterol 66 H (29-60) mg/dL TSH 3rd Generation 3.40 (0.46-4.68) mIU/mL 08/09/1718 08/09/17 Range/Units 06:00 05:22 02:57 WBC 14.0 H D (4.5-11.0) 10^3/ul RBC 3.21 L (3.5-6.1) 10^6/uL Hgb 10.2 L (14.0-18.0) g/dL Hct 29.5 L (42.0-52.0) % MCV 91.9 (80.0-105.0) fl MCH 31.8 (25.0-35.0) pg MCHC 34.6 (31.0-37.0) g/dl RDW 13.5 (11.5-14.5) % Plt Count 302 (120.0-450.0) 10^3/uL MPV 9.4 (7.0-11.0) fl Sodium (132-148) mmol/L Potassium (3.6-5.0) mmol/L Chloride (98-107) mmol/L Carbon Dioxide (21-33) mmol/L Anion Gap (10-20) BUN (7-21) mg/dL Creatinine (0.8-1.5) mg/dl Est GFR ( Amer) Est GFR (Non-Af Amer) POC Glucose (mg/dL) 210 H 262 H (65-110) mg/dL Random Glucose (70-110) mg/dL Calcium (8.4-10.5) mg/dL Phosphorus (2.5-4.5) mg/dL Total Bilirubin (0.2-1.3) mg/dL AST (17-59) U/L ALT (7-56) U/L Alkaline Phosphatase (38-126) U/L Total Protein (5.8-8.3) g/dL Albumin (3.0-4.8) g/dL Globulin gm/dL Albumin/Globulin Ratio (1.1-1.8) Triglycerides (35-160) mg/dL Cholesterol (130-200) mg/dL LDL Cholesterol Direct (0-129) mg/dL HDL Cholesterol (29-60) mg/dL TSH 3rd Generation (0.46-4.68) mIU/mL 08/09/17 08/09/17 08/08/17 Range/Units 01:00 00:03 22:13 WBC (4.5-11.0) 10^3/ul RBC (3.5-6.1) 10^6/uL Hgb (14.0-18.0) g/dL Hct (42.0-52.0) % MCV (80.0-105.0) fl MCH (25.0-35.0) pg MCHC (31.0-37.0) g/dl RDW (11.5-14.5) % Plt Count (120.0-450.0) 10^3/uL MPV (7.0-11.0) fl Sodium 136 (132-148) mmol/L Potassium 4.1 (3.6-5.0) mmol/L Chloride 105 (98-107) mmol/L Carbon Dioxide 21 (21-33) mmol/L Anion Gap 14 (10-20) BUN 22 H (7-21) mg/dL Creatinine 0.7 L (0.8-1.5) mg/dl Est GFR ( Amer) > 60 Est GFR (Non-Af Amer) > 60 POC Glucose (mg/dL) 282 H 129 H (65-110) mg/dL Random Glucose 321 H* D (70-110) mg/dL Calcium 7.8 L (8.4-10.5) mg/dL Phosphorus (2.5-4.5) mg/dL Total Bilirubin (0.2-1.3) mg/dL AST (17-59) U/L ALT (7-56) U/L Alkaline Phosphatase (38-126) U/L Total Protein (5.8-8.3) g/dL Albumin (3.0-4.8) g/dL Globulin gm/dL Albumin/Globulin Ratio (1.1-1.8) Triglycerides (35-160) mg/dL Cholesterol (130-200) mg/dL LDL Cholesterol Direct (0-129) mg/dL HDL Cholesterol (29-60) mg/dL TSH 3rd Generation (0.46-4.68) mIU/mL 08/08/17 08/08/17 08/08/17 Range/Units 21:12 21:05 20:10 WBC (4.5-11.0) 10^3/ul RBC (3.5-6.1) 10^6/uL Hgb (14.0-18.0) g/dL Hct (42.0-52.0) % MCV (80.0-105.0) fl MCH (25.0-35.0) pg MCHC (31.0-37.0) g/dl RDW (11.5-14.5) % Plt Count (120.0-450.0) 10^3/uL MPV (7.0-11.0) fl Sodium 141 (132-148) mmol/L Potassium 3.9 (3.6-5.0) mmol/L Chloride 109 H (98-107) mmol/L Carbon Dioxide 21 (21-33) mmol/L Anion Gap 15 (10-20) BUN 22 H (7-21) mg/dL Creatinine 0.6 L (0.8-1.5) mg/dl Est GFR ( Amer) > 60 Est GFR (Non-Af Amer) > 60 POC Glucose (mg/dL) 153 H 189 H (65-110) mg/dL Random Glucose 171 H (70-110) mg/dL Calcium 8.3 L (8.4-10.5) mg/dL Phosphorus (2.5-4.5) mg/dL Total Bilirubin (0.2-1.3) mg/dL AST (17-59) U/L ALT (7-56) U/L Alkaline Phosphatase (38-126) U/L Total Protein (5.8-8.3) g/dL Albumin (3.0-4.8) g/dL Globulin gm/dL Albumin/Globulin Ratio (1.1-1.8) Triglycerides (35-160) mg/dL Cholesterol (130-200) mg/dL LDL Cholesterol Direct (0-129) mg/dL HDL Cholesterol (29-60) mg/dL TSH 3rd Generation (0.46-4.68) mIU/mL 08/08/17 08/08/17 08/08/17 Range/Units 18:57 18:05 17:30 WBC (4.5-11.0) 10^3/ul RBC (3.5-6.1) 10^6/uL Hgb (14.0-18.0) g/dL Hct (42.0-52.0) % MCV (80.0-105.0) fl MCH (25.0-35.0) pg MCHC (31.0-37.0) g/dl RDW (11.5-14.5) % Plt Count (120.0-450.0) 10^3/uL MPV (7.0-11.0) fl Sodium 139 (132-148) mmol/L Potassium 4.2 (3.6-5.0) mmol/L Chloride 108 H (98-107) mmol/L Carbon Dioxide 17 L (21-33) mmol/L Anion Gap 18 (10-20) BUN 23 H (7-21) mg/dL Creatinine 0.7 L (0.8-1.5) mg/dl Est GFR ( Amer) > 60 Est GFR (Non-Af Amer) > 60 POC Glucose (mg/dL) 240 H 272 H (65-110) mg/dL Random Glucose 298 H (70-110) mg/dL Calcium 8.3 L (8.4-10.5) mg/dL Phosphorus (2.5-4.5) mg/dL Total Bilirubin (0.2-1.3) mg/dL AST (17-59) U/L ALT (7-56) U/L Alkaline Phosphatase (38-126) U/L Total Protein (5.8-8.3) g/dL Albumin (3.0-4.8) g/dL Globulin gm/dL Albumin/Globulin Ratio (1.1-1.8) Triglycerides (35-160) mg/dL Cholesterol (130-200) mg/dL LDL Cholesterol Direct (0-129) mg/dL HDL Cholesterol (29-60) mg/dL TSH 3rd Generation (0.46-4.68) mIU/mL 08/08/17 08/08/17 08/08/17 Range/Units 17:03 15:44 15:43 WBC (4.5-11.0) 10^3/ul RBC (3.5-6.1) 10^6/uL Hgb (14.0-18.0) g/dL Hct (42.0-52.0) % MCV (80.0-105.0) fl MCH (25.0-35.0) pg MCHC (31.0-37.0) g/dl RDW (11.5-14.5) % Plt Count (120.0-450.0) 10^3/uL MPV (7.0-11.0) fl Sodium 139 (132-148) mmol/L Potassium 4.8 (3.6-5.0) mmol/L Chloride 106 (98-107) mmol/L Carbon Dioxide 11 L (21-33) mmol/L Anion Gap 26 H (10-20) BUN 26 H (7-21) mg/dL Creatinine 0.8 (0.8-1.5) mg/dl Est GFR ( Amer) > 60 Est GFR (Non-Af Amer) > 60 POC Glucose (mg/dL) 334 H 319 H (65-110) mg/dL Random Glucose 431 H* D (70-110) mg/dL Calcium 8.4 (8.4-10.5) mg/dL Phosphorus (2.5-4.5) mg/dL Total Bilirubin (0.2-1.3) mg/dL AST (17-59) U/L ALT (7-56) U/L Alkaline Phosphatase (38-126) U/L Total Protein (5.8-8.3) g/dL Albumin (3.0-4.8) g/dL Globulin gm/dL Albumin/Globulin Ratio (1.1-1.8) Triglycerides (35-160) mg/dL Cholesterol (130-200) mg/dL LDL Cholesterol Direct (0-129) mg/dL HDL Cholesterol (29-60) mg/dL TSH 3rd Generation (0.46-4.68) mIU/mL 08/08/17 08/08/17 08/08/17 Range/Units 14:27 12:55 12:44 WBC (4.5-11.0) 10^3/ul RBC (3.5-6.1) 10^6/uL Hgb (14.0-18.0) g/dL Hct (42.0-52.0) % MCV (80.0-105.0) fl MCH (25.0-35.0) pg MCHC (31.0-37.0) g/dl RDW (11.5-14.5) % Plt Count (120.0-450.0) 10^3/uL MPV (7.0-11.0) fl Sodium 136 (132-148) mmol/L Potassium 5.8 H* (3.6-5.0) mmol/L Chloride 103 (98-107) mmol/L Carbon Dioxide 11 L (21-33) mmol/L Anion Gap 29 H (10-20) BUN 27 H (7-21) mg/dL Creatinine 0.8 (0.8-1.5) mg/dl Est GFR ( Amer) > 60 Est GFR (Non-Af Amer) > 60 POC Glucose (mg/dL) 339 H 440 H* (65-110) mg/dL Random Glucose 547 H* D (70-110) mg/dL Calcium 8.9 (8.4-10.5) mg/dL Phosphorus (2.5-4.5) mg/dL Total Bilirubin 0.3 (0.2-1.3) mg/dL AST 55 (17-59) U/L ALT 46 (7-56) U/L Alkaline Phosphatase 90 (38-126) U/L Total Protein 6.7 (5.8-8.3) g/dL Albumin 4.2 (3.0-4.8) g/dL Globulin 2.5 gm/dL Albumin/Globulin Ratio 1.7 (1.1-1.8) Triglycerides (35-160) mg/dL Cholesterol (130-200) mg/dL LDL Cholesterol Direct (0-129) mg/dL HDL Cholesterol (29-60) mg/dL TSH 3rd Generation (0.46-4.68) mIU/mL Laboratory Results - last 24 hr 08/08/17 08/08/17 08/08/17 12:44 12:55 14:27 WBC RBC Hgb Hct MCV MCH MCHC RDW Plt Count MPV Sodium 136 Potassium 5.8 H* Chloride 103 Carbon Dioxide 11 L Anion Gap 29 H BUN 27 H Creatinine 0.8 Est GFR ( Amer) > 60 Est GFR (Non-Af Amer) > 60 POC Glucose (mg/dL) 440 H* 339 H Random Glucose 547 H* D Calcium 8.9 Phosphorus Total Bilirubin 0.3 AST 55 ALT 46 Alkaline Phosphatase 90 Total Protein 6.7 Albumin 4.2 Globulin 2.5 Albumin/Globulin Ratio 1.7 Triglycerides Cholesterol LDL Cholesterol Direct HDL Cholesterol TSH 3rd Generation 08/08/17 08/08/17 08/08/17 15:43 15:44 17:03 WBC RBC Hgb Hct MCV MCH MCHC RDW Plt Count MPV Sodium 139 Potassium 4.8 Chloride 106 Carbon Dioxide 11 L Anion Gap 26 H BUN 26 H Creatinine 0.8 Est GFR ( Amer) > 60 Est GFR (Non-Af Amer) > 60 POC Glucose (mg/dL) 319 H 334 H Random Glucose 431 H* D Calcium 8.4 Phosphorus Total Bilirubin AST ALT Alkaline Phosphatase Total Protein Albumin Globulin Albumin/Globulin Ratio Triglycerides Cholesterol LDL Cholesterol Direct HDL Cholesterol TSH 3rd Generation 08/08/17 08/08/17 08/08/17 17:30 18:05 18:57 WBC RBC Hgb Hct MCV MCH MCHC RDW Plt Count MPV Sodium 139 Potassium 4.2 Chloride 108 H Carbon Dioxide 17 L Anion Gap 18 BUN 23 H Creatinine 0.7 L Est GFR ( Amer) > 60 Est GFR (Non-Af Amer) > 60 POC Glucose (mg/dL) 272 H 240 H Random Glucose 298 H Calcium 8.3 L Phosphorus Total Bilirubin AST ALT Alkaline Phosphatase Total Protein Albumin Globulin Albumin/Globulin Ratio Triglycerides Cholesterol LDL Cholesterol Direct HDL Cholesterol TSH 3rd Generation 08/08/17 08/08/17 08/08/17 20:10 21:05 21:12 WBC RBC Hgb Hct MCV MCH MCHC RDW Plt Count MPV Sodium 141 Potassium 3.9 Chloride 109 H Carbon Dioxide 21 Anion Gap 15 BUN 22 H Creatinine 0.6 L Est GFR ( Amer) > 60 Est GFR (Non-Af Amer) > 60 POC Glucose (mg/dL) 189 H 153 H Random Glucose 171 H Calcium 8.3 L Phosphorus Total Bilirubin AST ALT Alkaline Phosphatase Total Protein Albumin Globulin Albumin/Globulin Ratio Triglycerides Cholesterol LDL Cholesterol Direct HDL Cholesterol TSH 3rd Generation 08/08/17 08/09/17 08/09/17 22:13 00:03 01:00 WBC RBC Hgb Hct MCV MCH MCHC RDW Plt Count MPV Sodium 136 Potassium 4.1 Chloride 105 Carbon Dioxide 21 Anion Gap 14 BUN 22 H Creatinine 0.7 L Est GFR ( Amer) > 60 Est GFR (Non-Af Amer) > 60 POC Glucose (mg/dL) 129 H 282 H Random Glucose 321 H* D Calcium 7.8 L Phosphorus Total Bilirubin AST ALT Alkaline Phosphatase Total Protein Albumin Globulin Albumin/Globulin Ratio Triglycerides Cholesterol LDL Cholesterol Direct HDL Cholesterol TSH 3rd Generation 08/09/17 08/09/17 08/09/17 02:57 05:22 06:00 WBC 14.0 H D RBC 3.21 L Hgb 10.2 L Hct 29.5 L MCV 91.9 MCH 31.8 MCHC 34.6 RDW 13.5 Plt Count 302 MPV 9.4 Sodium Potassium Chloride Carbon Dioxide Anion Gap BUN Creatinine Est GFR ( Amer) Est GFR (Non-Af Amer) POC Glucose (mg/dL) 262 H 210 H Random Glucose Calcium Phosphorus Total Bilirubin AST ALT Alkaline Phosphatase Total Protein Albumin Globulin Albumin/Globulin Ratio Triglycerides Cholesterol LDL Cholesterol Direct HDL Cholesterol TSH 3rd Generation 08/09/17 08/09/17 08/09/17 06:00 06:00 07:32 WBC RBC Hgb Hct MCV MCH MCHC RDW Plt Count MPV Sodium 140 Potassium 3.5 L Chloride 108 H Carbon Dioxide 24 Anion Gap 11 BUN 21 Creatinine 0.6 L Est GFR ( Amer) > 60 Est GFR (Non-Af Amer) > 60 POC Glucose (mg/dL) 142 H Random Glucose 187 H Calcium 8.1 L Phosphorus 2.2 L Total Bilirubin 0.2 AST 71 H D ALT 71 H Alkaline Phosphatase 63 Total Protein 5.8 Albumin 3.1 Globulin 2.6 Albumin/Globulin Ratio 1.2 Triglycerides 89 Cholesterol 143 LDL Cholesterol Direct 60 HDL Cholesterol 66 H TSH 3rd Generation 3.40 Fingerstick Blood Sugar Results: 142 Critical Care Progress Note - Nutrition Nutrition: Nutrition Category Date Time Status Heart Healthy Diet [DIET] Diets 08/09/17 Breakfast Active Assessment/Plan - Assessment and Plan (Free Text) Plan: Mr Daniel Baxter, 47M, born with cerebral palsy and epilepsy since , PMHx long standing DM1, on [employer], did not fell well x several days, with concern for insulin "overdose". He was found to have WBC 23, BS high 300s, gap 14. Ph 7.1 (ship)--> 7.3. Insulin gtt d/c at 10pm last night, tolerated meal. 15 levemir administered. u/o 1400. Poor controlled DM1 DKA - Likely due to skipped insulin, possible infection, doubt ischemia (trop < 0.01) Leukocytosis, likely reactive to DKA, Ceftriazone prophlaxis Hx cerebral palsy and epilepsy Neuro - maintain Nomothermia, aaox3. Carbamazepine ER 1000 10a, 10p Penobarbital 32.4 10a, Pulm - No active issue. Maintain Sa)2 above 95% Card - HTN but BP 120s GI - Tolareating diet AST/ALT 71/71. No abdominal pain/diarrhea. Observe and trend LFT - U/O 1400. Repleate electrolytes as needed Endo - A1C , levemir 15 HS, ISSS -med Heme - no active issue ID - No fever/chills. WBC 14 (23) Ceftriaxone. F/u C diff, Blood Cx Urine Cx - neg D/u procalc PVX - heparin SCq8, protonix s/r/d/w Dr Ford <Eugene Ford - Last Filed: 08/09/17 14:58> CCU Objective - Vital Signs / Intake & Output Vital Signs (Last 4 hours): Vital Signs Temp Pulse Resp BP Pulse Ox 08/09/17 14:00 98.1 F 61 18 129/72 100 08/09/17 12:00 98.1 F 64 158/75 H 97 08/09/17 11:00 52 L 19 146/66 98 Intake and Output (Last 8hrs): Intake & Output 08/08/17 08/09/17 08/09/17 22:59 06:59 14:59 Intake Total 596.5 1457 940 Output Total 700 700 640 Balance -103.5 757 300 Weight 125 lb Intake: IV 476.5 607 100 0.9 NS 450 600 Left Wrist 100 insulin 10 7 Oral 120 850 840 Output: Urine 700 700 640 Urine, Voided 700 700 640 Other: Voiding Method Urinal # Voids Urine, Voided 2 2 # Bowel Movements 0 0 0 - Medications Active Medications: Active Medications Generic Name Dose Route Start Last Admin Trade Name Freq PRN Reason Stop Dose Admin Heparin Sodium (Porcine) 5,000 units 08/08/17 13:15 08/09/17 13:12 Heparin SC 5,000 units Q8H [facility] Administration Protocol Ceftriaxone Sodium 1 gm in 100 mls @ 100 mls/hr 08/08/17 15:15 08/09/17 09:33 Rocephin 1 Gram Ivpb IVPB 100 mls/hr DAILY [facility] Administration Protocol Insulin Detemir 20 unit 08/09/17 22:00 Levemir SC HS [facility] Insulin Human Lispro 10 units 08/09/17 16:30 Humalog SC AC [facility] Insulin Human Lispro 0 units 08/09/17 16:30 Humalog Low SC ACHS [facility] Protocol Carbamazepine [ 800 mg 08/09/17 10:30 08/09/17 10:54 Carbamazepine Er] PO 800 mg 400 Mg Q12 [facility] Administration Carbamazepine [ 200 mg 08/09/17 10:30 08/09/17 10:53 Carbamazepine Er] PO 200 mg 200 Mg Q12 [facility] Administration Pantoprazole Sodium 40 mg 08/09/17 06:00 08/09/17 06:08 Protonix Ec Tab PO 40 mg 0600 [facility] Administration Phenobarbital 64.8 mg 08/09/17 22:00 Phenobarbital Tab PO 2200 [facility] Phenobarbital 32.4 mg 08/09/17 10:30 08/09/17 10:36 Phenobarbital Tab PO 32.4 mg DAILY [facility] Administration - Patient Studies Lab Studies: Lab Studies 08/09/17 08/09/17 08/09/17 Range/Units 11:31 07:32 06:00 WBC (4.5-11.0) 10^3/ul RBC (3.5-6.1) 10^6/uL Hgb (14.0-18.0) g/dL Hct (42.0-52.0) % MCV (80.0-105.0) fl MCH (25.0-35.0) pg MCHC (31.0-37.0) g/dl RDW (11.5-14.5) % Plt Count (120.0-450.0) 10^3/uL MPV (7.0-11.0) fl Sodium (132-148) mmol/L Potassium (3.6-5.0) mmol/L Chloride (98-107) mmol/L Carbon Dioxide (21-33) mmol/L Anion Gap (10-20) BUN (7-21) mg/dL Creatinine (0.8-1.5) mg/dl Est GFR ( Amer) Est GFR (Non-Af Amer) POC Glucose (mg/dL) 342 H 142 H (65-110) mg/dL Random Glucose (70-110) mg/dL Calcium (8.4-10.5) mg/dL Phosphorus (2.5-4.5) mg/dL Total Bilirubin (0.2-1.3) mg/dL AST (17-59) U/L ALT (7-56) U/L Alkaline Phosphatase (38-126) U/L Total Protein (5.8-8.3) g/dL Albumin (3.0-4.8) g/dL Globulin gm/dL Albumin/Globulin Ratio (1.1-1.8) Triglycerides (35-160) mg/dL Cholesterol (130-200) mg/dL LDL Cholesterol Direct (0-129) mg/dL HDL Cholesterol (29-60) mg/dL Procalcitonin (0.19-0.49) NG/ML TSH 3rd Generation 3.40 (0.46-4.68) mIU/mL 08/09/17 08/09/17 08/09/17 Range/Units 06:00 06:00 06:00 WBC 14.0 H D (4.5-11.0) 10^3/ul RBC 3.21 L (3.5-6.1) 10^6/uL Hgb 10.2 L (14.0-18.0) g/dL Hct 29.5 L (42.0-52.0) % MCV 91.9 (80.0-105.0) fl MCH 31.8 (25.0-35.0) pg MCHC 34.6 (31.0-37.0) g/dl RDW 13.5 (11.5-14.5) % Plt Count 302 (120.0-450.0) 10^3/uL MPV 9.4 (7.0-11.0) fl Sodium 140 (132-148) mmol/L Potassium 3.5 L (3.6-5.0) mmol/L Chloride 108 H (98-107) mmol/L Carbon Dioxide 24 (21-33) mmol/L Anion Gap 11 (10-20) BUN 21 (7-21) mg/dL Creatinine 0.6 L (0.8-1.5) mg/dl Est GFR ( Amer) > 60 Est GFR (Non-Af Amer) > 60 POC Glucose (mg/dL) (65-110) mg/dL Random Glucose 187 H (70-110) mg/dL Calcium 8.1 L (8.4-10.5) mg/dL Phosphorus 2.2 L (2.5-4.5) mg/dL Total Bilirubin 0.2 (0.2-1.3) mg/dL AST 71 H D (17-59) U/L ALT 71 H (7-56) U/L Alkaline Phosphatase 63 (38-126) U/L Total Protein 5.8 (5.8-8.3) g/dL Albumin 3.1 (3.0-4.8) g/dL Globulin 2.6 gm/dL Albumin/Globulin Ratio 1.2 (1.1-1.8) Triglycerides 89 (35-160) mg/dL Cholesterol 143 (130-200) mg/dL LDL Cholesterol Direct 60 (0-129) mg/dL HDL Cholesterol 66 H (29-60) mg/dL Procalcitonin 0.34 (0.19-0.49) NG/ML TSH 3rd Generation (0.46-4.68) mIU/mL 08/09/17 08/09/17 08/09/17 Range/Units 05:22 02:57 01:00 WBC (4.5-11.0) 10^3/ul RBC (3.5-6.1) 10^6/uL Hgb (14.0-18.0) g/dL Hct (42.0-52.0) % MCV (80.0-105.0) fl MCH (25.0-35.0) pg MCHC (31.0-37.0) g/dl RDW (11.5-14.5) % Plt Count (120.0-450.0) 10^3/uL MPV (7.0-11.0) fl Sodium 136 (132-148) mmol/L Potassium 4.1 (3.6-5.0) mmol/L Chloride 105 (98-107) mmol/L Carbon Dioxide 21 (21-33) mmol/L Anion Gap 14 (10-20) BUN 22 H (7-21) mg/dL Creatinine 0.7 L (0.8-1.5) mg/dl Est GFR ( Amer) > 60 Est GFR (Non-Af Amer) > 60 POC Glucose (mg/dL) 210 H 262 H (65-110) mg/dL Random Glucose 321 H* D (70-110) mg/dL Calcium 7.8 L (8.4-10.5) mg/dL Phosphorus (2.5-4.5) mg/dL Total Bilirubin (0.2-1.3) mg/dL AST (17-59) U/L ALT (7-56) U/L Alkaline Phosphatase (38-126) U/L Total Protein (5.8-8.3) g/dL Albumin (3.0-4.8) g/dL Globulin gm/dL Albumin/Globulin Ratio (1.1-1.8) Triglycerides (35-160) mg/dL Cholesterol (130-200) mg/dL LDL Cholesterol Direct (0-129) mg/dL HDL Cholesterol (29-60) mg/dL Procalcitonin (0.19-0.49) NG/ML TSH 3rd Generation (0.46-4.68) mIU/mL 08/09/17 08/08/17 08/08/17 Range/Units 00:03 22:13 21:12 WBC (4.5-11.0) 10^3/ul RBC (3.5-6.1) 10^6/uL Hgb (14.0-18.0) g/dL Hct (42.0-52.0) % MCV (80.0-105.0) fl MCH (25.0-35.0) pg MCHC (31.0-37.0) g/dl RDW (11.5-14.5) % Plt Count (120.0-450.0) 10^3/uL MPV (7.0-11.0) fl Sodium (132-148) mmol/L Potassium (3.6-5.0) mmol/L Chloride (98-107) mmol/L Carbon Dioxide (21-33) mmol/L Anion Gap (10-20) BUN (7-21) mg/dL Creatinine (0.8-1.5) mg/dl Est GFR ( Amer) Est GFR (Non-Af Amer) POC Glucose (mg/dL) 282 H 129 H 153 H (65-110) mg/dL Random Glucose (70-110) mg/dL Calcium (8.4-10.5) mg/dL Phosphorus (2.5-4.5) mg/dL Total Bilirubin (0.2-1.3) mg/dL AST (17-59) U/L ALT (7-56) U/L Alkaline Phosphatase (38-126) U/L Total Protein (5.8-8.3) g/dL Albumin (3.0-4.8) g/dL Globulin gm/dL Albumin/Globulin Ratio (1.1-1.8) Triglycerides (35-160) mg/dL Cholesterol (130-200) mg/dL LDL Cholesterol Direct (0-129) mg/dL HDL Cholesterol (29-60) mg/dL Procalcitonin (0.19-0.49) NG/ML TSH 3rd Generation (0.46-4.68) mIU/mL 08/08/17 08/08/17 08/08/17 Range/Units 21:05 20:10 18:57 WBC (4.5-11.0) 10^3/ul RBC (3.5-6.1) 10^6/uL Hgb (14.0-18.0) g/dL Hct (42.0-52.0) % MCV (80.0-105.0) fl MCH (25.0-35.0) pg MCHC (31.0-37.0) g/dl RDW (11.5-14.5) % Plt Count (120.0-450.0) 10^3/uL MPV (7.0-11.0) fl Sodium 141 (132-148) mmol/L Potassium 3.9 (3.6-5.0) mmol/L Chloride 109 H (98-107) mmol/L Carbon Dioxide 21 (21-33) mmol/L Anion Gap 15 (10-20) BUN 22 H (7-21) mg/dL Creatinine 0.6 L (0.8-1.5) mg/dl Est GFR ( Amer) > 60 Est GFR (Non-Af Amer) > 60 POC Glucose (mg/dL) 189 H 240 H (65-110) mg/dL Random Glucose 171 H (70-110) mg/dL Calcium 8.3 L (8.4-10.5) mg/dL Phosphorus (2.5-4.5) mg/dL Total Bilirubin (0.2-1.3) mg/dL AST (17-59) U/L ALT (7-56) U/L Alkaline Phosphatase (38-126) U/L Total Protein (5.8-8.3) g/dL Albumin (3.0-4.8) g/dL Globulin gm/dL Albumin/Globulin Ratio (1.1-1.8) Triglycerides (35-160) mg/dL Cholesterol (130-200) mg/dL LDL Cholesterol Direct (0-129) mg/dL HDL Cholesterol (29-60) mg/dL Procalcitonin (0.19-0.49) NG/ML TSH 3rd Generation (0.46-4.68) mIU/mL 08/08/17 08/08/17 08/08/17 Range/Units 18:05 17:30 17:03 WBC (4.5-11.0) 10^3/ul RBC (3.5-6.1) 10^6/uL Hgb (14.0-18.0) g/dL Hct (42.0-52.0) % MCV (80.0-105.0) fl MCH (25.0-35.0) pg MCHC (31.0-37.0) g/dl RDW (11.5-14.5) % Plt Count (120.0-450.0) 10^3/uL MPV (7.0-11.0) fl Sodium 139 (132-148) mmol/L Potassium 4.2 (3.6-5.0) mmol/L Chloride 108 H (98-107) mmol/L Carbon Dioxide 17 L (21-33) mmol/L Anion Gap 18 (10-20) BUN 23 H (7-21) mg/dL Creatinine 0.7 L (0.8-1.5) mg/dl Est GFR ( Amer) > 60 Est GFR (Non-Af Amer) > 60 POC Glucose (mg/dL) 272 H 334 H (65-110) mg/dL Random Glucose 298 H (70-110) mg/dL Calcium 8.3 L (8.4-10.5) mg/dL Phosphorus (2.5-4.5) mg/dL Total Bilirubin (0.2-1.3) mg/dL AST (17-59) U/L ALT (7-56) U/L Alkaline Phosphatase (38-126) U/L Total Protein (5.8-8.3) g/dL Albumin (3.0-4.8) g/dL Globulin gm/dL Albumin/Globulin Ratio (1.1-1.8) Triglycerides (35-160) mg/dL Cholesterol (130-200) mg/dL LDL Cholesterol Direct (0-129) mg/dL HDL Cholesterol (29-60) mg/dL Procalcitonin (0.19-0.49) NG/ML TSH 3rd Generation (0.46-4.68) mIU/mL 08/08/17 08/08/17 08/08/17 Range/Units 15:44 15:43 14:27 WBC (4.5-11.0) 10^3/ul RBC (3.5-6.1) 10^6/uL Hgb (14.0-18.0) g/dL Hct (42.0-52.0) % MCV (80.0-105.0) fl MCH (25.0-35.0) pg MCHC (31.0-37.0) g/dl RDW (11.5-14.5) % Plt Count (120.0-450.0) 10^3/uL MPV (7.0-11.0) fl Sodium 139 (132-148) mmol/L Potassium 4.8 (3.6-5.0) mmol/L Chloride 106 (98-107) mmol/L Carbon Dioxide 11 L (21-33) mmol/L Anion Gap 26 H (10-20) BUN 26 H (7-21) mg/dL Creatinine 0.8 (0.8-1.5) mg/dl Est GFR ( Amer) > 60 Est GFR (Non-Af Amer) > 60 POC Glucose (mg/dL) 319 H 339 H (65-110) mg/dL Random Glucose 431 H* D (70-110) mg/dL Calcium 8.4 (8.4-10.5) mg/dL Phosphorus (2.5-4.5) mg/dL Total Bilirubin (0.2-1.3) mg/dL AST (17-59) U/L ALT (7-56) U/L Alkaline Phosphatase (38-126) U/L Total Protein (5.8-8.3) g/dL Albumin (3.0-4.8) g/dL Globulin gm/dL Albumin/Globulin Ratio (1.1-1.8) Triglycerides (35-160) mg/dL Cholesterol (130-200) mg/dL LDL Cholesterol Direct (0-129) mg/dL HDL Cholesterol (29-60) mg/dL Procalcitonin (0.19-0.49) NG/ML TSH 3rd Generation (0.46-4.68) mIU/mL 08/08/17 Range/Units 12:44 WBC (4.5-11.0) 10^3/ul RBC (3.5-6.1) 10^6/uL Hgb (14.0-18.0) g/dL Hct (42.0-52.0) % MCV (80.0-105.0) fl MCH (25.0-35.0) pg MCHC (31.0-37.0) g/dl RDW (11.5-14.5) % Plt Count (120.0-450.0) 10^3/uL MPV (7.0-11.0) fl Sodium (132-148) mmol/L Potassium (3.6-5.0) mmol/L Chloride (98-107) mmol/L Carbon Dioxide (21-33) mmol/L Anion Gap (10-20) BUN (7-21) mg/dL Creatinine (0.8-1.5) mg/dl Est GFR ( Amer) Est GFR (Non-Af Amer) POC Glucose (mg/dL) 440 H* (65-110) mg/dL Random Glucose (70-110) mg/dL Calcium (8.4-10.5) mg/dL Phosphorus (2.5-4.5) mg/dL Total Bilirubin (0.2-1.3) mg/dL AST (17-59) U/L ALT (7-56) U/L Alkaline Phosphatase (38-126) U/L Total Protein (5.8-8.3) g/dL Albumin (3.0-4.8) g/dL Globulin gm/dL Albumin/Globulin Ratio (1.1-1.8) Triglycerides (35-160) mg/dL Cholesterol (130-200) mg/dL LDL Cholesterol Direct (0-129) mg/dL HDL Cholesterol (29-60) mg/dL Procalcitonin (0.19-0.49) NG/ML TSH 3rd Generation (0.46-4.68) mIU/mL Laboratory Results - last 24 hr 08/08/17 08/08/17 08/08/17 12:44 14:27 15:43 WBC RBC Hgb Hct MCV MCH MCHC RDW Plt Count MPV Sodium Potassium Chloride Carbon Dioxide Anion Gap BUN Creatinine Est GFR ( Amer) Est GFR (Non-Af Amer) POC Glucose (mg/dL) 440 H* 339 H 319 H Random Glucose Calcium Phosphorus Total Bilirubin AST ALT Alkaline Phosphatase Total Protein Albumin Globulin Albumin/Globulin Ratio Triglycerides Cholesterol LDL Cholesterol Direct HDL Cholesterol Procalcitonin TSH 3rd Generation 08/08/17 08/08/17 08/08/17 15:44 17:03 17:30 WBC RBC Hgb Hct MCV MCH MCHC RDW Plt Count MPV Sodium 139 139 Potassium 4.8 4.2 Chloride 106 108 H Carbon Dioxide 11 L 17 L Anion Gap 26 H 18 BUN 26 H 23 H Creatinine 0.8 0.7 L Est GFR ( Amer) > 60 > 60 Est GFR (Non-Af Amer) > 60 > 60 POC Glucose (mg/dL) 334 H Random Glucose 431 H* D 298 H Calcium 8.4 8.3 L Phosphorus Total Bilirubin AST ALT Alkaline Phosphatase Total Protein Albumin Globulin Albumin/Globulin Ratio Triglycerides Cholesterol LDL Cholesterol Direct HDL Cholesterol Procalcitonin TSH 3rd Generation 06/23/18 06/23/18 06/23/18 18:05 18:57 20:10 WBC RBC Hgb Hct MCV MCH MCHC RDW Plt Count MPV Sodium Potassium Chloride Carbon Dioxide Anion Gap BUN Creatinine Est GFR ( Amer) Est GFR (Non-Af Amer) POC Glucose (mg/dL) 272 H 240 H 189 H Random Glucose Calcium Phosphorus Total Bilirubin AST ALT Alkaline Phosphatase Total Protein Albumin Globulin Albumin/Globulin Ratio Triglycerides Cholesterol LDL Cholesterol Direct HDL Cholesterol Procalcitonin TSH 3rd Generation 08/08/17 08/08/17 08/08/17 21:05 21:12 22:13 WBC RBC Hgb Hct MCV MCH MCHC RDW Plt Count MPV Sodium 141 Potassium 3.9 Chloride 109 H Carbon Dioxide 21 Anion Gap 15 BUN 22 H Creatinine 0.6 L Est GFR ( Amer) > 60 Est GFR (Non-Af Amer) > 60 POC Glucose (mg/dL) 153 H 129 H Random Glucose 171 H Calcium 8.3 L Phosphorus Total Bilirubin AST ALT Alkaline Phosphatase Total Protein Albumin Globulin Albumin/Globulin Ratio Triglycerides Cholesterol LDL Cholesterol Direct HDL Cholesterol Procalcitonin TSH 3rd Generation 08/09/17 08/09/17 08/09/17 00:03 01:00 02:57 WBC RBC Hgb Hct MCV MCH MCHC RDW Plt Count MPV Sodium 136 Potassium 4.1 Chloride 105 Carbon Dioxide 21 Anion Gap 14 BUN 22 H Creatinine 0.7 L Est GFR ( Amer) > 60 Est GFR (Non-Af Amer) > 60 POC Glucose (mg/dL) 282 H 262 H Random Glucose 321 H* D Calcium 7.8 L Phosphorus Total Bilirubin AST ALT Alkaline Phosphatase Total Protein Albumin Globulin Albumin/Globulin Ratio Triglycerides Cholesterol LDL Cholesterol Direct HDL Cholesterol Procalcitonin TSH 3rd Generation 08/09/17 08/09/17 08/09/17 05:22 06:00 06:00 WBC 14.0 H D RBC 3.21 L Hgb 10.2 L Hct 29.5 L MCV 91.9 MCH 31.8 MCHC 34.6 RDW 13.5 Plt Count 302 MPV 9.4 Sodium Potassium Chloride Carbon Dioxide Anion Gap BUN Creatinine Est GFR ( Amer) Est GFR (Non-Af Amer) POC Glucose (mg/dL) 210 H Random Glucose Calcium Phosphorus Total Bilirubin AST ALT Alkaline Phosphatase Total Protein Albumin Globulin Albumin/Globulin Ratio Triglycerides Cholesterol LDL Cholesterol Direct HDL Cholesterol Procalcitonin 0.34 TSH 3rd Generation 0608/09/17 08/09/17 06:00 06:00 07:32 WBC RBC Hgb Hct MCV MCH MCHC RDW Plt Count MPV Sodium 140 Potassium 3.5 L Chloride 108 H Carbon Dioxide 24 Anion Gap 11 BUN 21 Creatinine 0.6 L Est GFR ( Amer) > 60 Est GFR (Non-Af Amer) > 60 POC Glucose (mg/dL) 142 H Random Glucose 187 H Calcium 8.1 L Phosphorus 2.2 L Total Bilirubin 0.2 AST 71 H D ALT 71 H Alkaline Phosphatase 63 Total Protein 5.8 Albumin 3.1 Globulin 2.6 Albumin/Globulin Ratio 1.2 Triglycerides 89 Cholesterol 143 LDL Cholesterol Direct 60 HDL Cholesterol 66 H Procalcitonin TSH 3rd Generation 3.40 08/09/17 11:31 WBC RBC Hgb Hct MCV MCH MCHC RDW Plt Count MPV Sodium Potassium Chloride Carbon Dioxide Anion Gap BUN Creatinine Est GFR ( Amer) Est GFR (Non-Af Amer) POC Glucose (mg/dL) 342 H Random Glucose Calcium Phosphorus Total Bilirubin AST ALT Alkaline Phosphatase Total Protein Albumin Globulin Albumin/Globulin Ratio Triglycerides Cholesterol LDL Cholesterol Direct HDL Cholesterol Procalcitonin TSH 3rd Generation Critical Care Progress Note - Nutrition Nutrition: Nutrition Category Date Time Status Heart Healthy Diet [DIET] Diets 08/09/17 Breakfast Active Attending/Attestation - Attestation I have personally seen and examined this patient.: Yes I have fully participated in the care of the patient.: Yes I have reviewed all pertinent clinical information: Yes Notes (Text): 08/09/17 14:[address] Ford's note
[2017-08-09] MEDS: CARBAMAZEPINE 200 MG PO SCH ×2 (10:53→22:52)
[2017-08-09] MEDS: CARBAMAZEPINE 400 MG PO SCH ×2 (10:54→22:51)
--- NOTE | 2017-08-09 11:28 | CP.PCM.CON ---
History of Present Illness - History of Present Illness History of Present Illness: 47 year old male with PMH of IDDM, cerebral palsy was [place] a cruise ship and was not feeling well for the past 4 days, with nausea, loose bowel movement and vomiting. He had been missing his doses of Lantus while on the cruise ship. He was seen by the cruise ship medical personnel and found to be in diabetic ketoacidosis and was started on Insulin drip and was sent to [facility] for further management. He was still found to be in DKA in the ED and was sent to the ICU. He now does not complain of abdominal pain, no fevers or chills, no more nausea or vomiting, no headache or dizziness, no chest pain, no SOB, no sore throat, no rhinorrhea or cough, no more LBM, no dysuria. He was also found to have leukocytosis in the ED. Infectious Diseases consult is requested to further evaluate and manage. Review of Systems - Review of Systems All systems: reviewed and no additional remarkable complaints except (as per HPI ) Past Patient History - Infectious Disease Hx of Infectious Diseases: None - Past Social History Smoking Status: Current Some Days Smoker - CARDIAC Hx Cardiac Disorders: Yes Hx Hypercholesterolemia: Yes - PULMONARY Hx Respiratory Disorders: Yes (SMOKES 1/2 PPD CIGARETTES) - NEUROLOGICAL Hx Neurological Disorder: Yes Hx Seizures: Yes (LAST SZ WAS A MONTH AGO JUNE 2017) Other/Comment: Cerebral palsy - HEENT Hx HEENT Problems: No - RENAL Hx Chronic Kidney Disease: No - ENDOCRINE/METABOLIC Hx Endocrine Disorders: Yes Hx Diabetes Mellitus Type 1: Yes - HEMATOLOGICAL/ONCOLOGICAL Hx Blood Disorders: No - INTEGUMENTARY Hx Dermatological Problems: No - MUSCULOSKELETAL/RHEUMATOLOGICAL Hx Musculoskeletal Disorders: Yes Hx Falls: Yes - GASTROINTESTINAL Hx Gastrointestinal Disorders: No - GENITOURINARY/GYNECOLOGICAL Hx Genitourinary Disorders: No - PSYCHIATRIC Hx Psychophysiologic Disorder: Yes Hx Anxiety: Yes Hx Depression: Yes Hx Substance Use: No - SURGICAL HISTORY Hx Surgeries: Yes (VNS IMPLANT-vagus nerve stimulation-CONTROL OF SZ) Meds Allergies/Adverse Reactions: Allergies Allergy/AdvReac Type Severity Reaction Status Date / Time morphine Allergy RASH Verified 08/08/17 18:18 - Medications Medications: Current Medications Heparin Sodium (Porcine) (Heparin) 5,000 units SC Q8H [facility] PRN Reason: Protocol Last Admin: 08/08/17 20:58 Dose: 5,000 units Sodium Chloride (Sodium Chloride 0.9%) 1,000 mls @ 150 mls/hr IV .Q6H40M [facility] Last Admin: 08/08/17 16:20 Dose: 150 mls/hr Ceftriaxone Sodium (Rocephin 1 Gram Ivpb) 1 gm in 100 mls @ 100 mls/hr IVPB DAILY [facility] PRN Reason: Protocol Last Admin: 08/08/17 16:22 Dose: 100 mls/hr Dextrose/Sodium Chloride (Dextrose 5%/0.9% Ns 1000 Ml) 1,000 mls @ 150 mls/hr IV .Q6H40M [facility] Last Admin: 08/08/17 22:00 Dose: 150 mls/hr Insulin Detemir (Levemir) 15 unit SC [facility] Last Admin: 08/08/17 22:31 Dose: 15 u Insulin Human Regular (Humulin R Med) 0 units SC ACHS [facility] PRN Reason: Protocol Last Admin: 08/08/17 22:28 Dose: Not Given Pantoprazole Sodium (Protonix Ec Tab) 40 mg PO 0600 [facility] Phenobarbital (Phenobarbital Tab) 64.8 mg PO [facility] Last Admin: 08/08/17 22:59 Dose: 64.8 mg Physical Exam - Constitutional Appears: Non-toxic, Chronically Ill - Head Exam Head Exam: NORMAL INSPECTION - ENT Exam ENT Exam: Mucous Membranes Moist - Neck Exam Neck exam: Negative for: Lymphadenopathy, Meningismus - Respiratory Exam Respiratory Exam: Decreased Breath Sounds - Cardiovascular Exam Cardiovascular Exam: +S1, +S2 - GI/Abdominal Exam GI & Abdominal Exam: Soft. absent: Tenderness Results - Vital Signs Recent Vital Signs: Last Vital Signs Temp 98.4 F 08/08/17 20:11 Pulse 64 08/08/17 23:00 Resp 19 08/08/17 23:00 BP 128/62 08/08/17 23:00 Pulse Ox 100 08/08/17 23:00 - Labs Result Diagrams: 08/09/17 06:00 08/09/17 06:00 Labs: Laboratory Results - last 24 hr 08/08/17 08/08/17 08/08/17 12:44 12:55 14:27 Sodium 136 Potassium 5.8 H* Chloride 103 Carbon Dioxide 11 L Anion Gap 29 H BUN 27 H Creatinine 0.8 Est GFR ( Amer) > 60 Est GFR (Non-Af Amer) > 60 POC Glucose (mg/dL) 440 H* 339 H Random Glucose 547 H* D Calcium 8.9 Total Bilirubin 0.3 AST 55 ALT 46 Alkaline Phosphatase 90 Total Protein 6.7 Albumin 4.2 Globulin 2.5 Albumin/Globulin Ratio 1.7 08/08/17 08/08/17 08/08/17 15:43 15:44 17:03 Sodium 139 Potassium 4.8 Chloride 106 Carbon Dioxide 11 L Anion Gap 26 H BUN 26 H Creatinine 0.8 Est GFR ( Amer) > 60 Est GFR (Non-Af Amer) > 60 POC Glucose (mg/dL) 319 H 334 H Random Glucose 431 H* D Calcium 8.4 Total Bilirubin AST ALT Alkaline Phosphatase Total Protein Albumin Globulin Albumin/Globulin Ratio 08/08/17 08/08/17 08/08/17 17:30 18:05 18:57 Sodium 139 Potassium 4.2 Chloride 108 H Carbon Dioxide 17 L Anion Gap 18 BUN 23 H Creatinine 0.7 L Est GFR ( Amer) > 60 Est GFR (Non-Af Amer) > 60 POC Glucose (mg/dL) 272 H 240 H Random Glucose 298 H Calcium 8.3 L Total Bilirubin AST ALT Alkaline Phosphatase Total Protein Albumin Globulin Albumin/Globulin Ratio 08/08/17 08/08/17 08/08/17 20:10 21:05 21:12 Sodium 141 Potassium 3.9 Chloride 109 H Carbon Dioxide 21 Anion Gap 15 BUN 22 H Creatinine 0.6 L Est GFR ( Amer) > 60 Est GFR (Non-Af Amer) > 60 POC Glucose (mg/dL) 189 H 153 H Random Glucose 171 H Calcium 8.3 L Total Bilirubin AST ALT Alkaline Phosphatase Total Protein Albumin Globulin Albumin/Globulin Ratio 08/08/17 22:13 Sodium Potassium Chloride Carbon Dioxide Anion Gap BUN Creatinine Est GFR ( Amer) Est GFR (Non-Af Amer) POC Glucose (mg/dL) 129 H Random Glucose Calcium Total Bilirubin AST ALT Alkaline Phosphatase Total Protein Albumin Globulin Albumin/Globulin Ratio Assessment & Plan - Assessment and Plan (Free Text) Plan: Assessment Systemic Inflammatory response syndrome, consider due to diabetic ketoacidosis, probably from missed insulin doses less likely infection IDDM cerebral palsy Plan Will follow up blood, urine cx, PCT; CXR does not show infiltrates, LFT's are ok will monitor clinically off antibiotics (Was given Rocephin but will d/c this)
--- NOTE | 2017-08-09 11:52 | PN ---
DATE: 08/09/2017 SUBJECTIVE: The patient seen and examined at bedside. He is doing very well. He is alert, awake, oriented in good mood and good sprit. PHYSICAL EXAMINATION: VITAL SIGNS: Blood pressure 112/50, heart rate 63, oxygen saturation 100% on room air. HEENT: Head and neck atraumatic. LUNGS: Clear auscultation bilaterally. HEART: Regular rate and rhythm. S1 and S2 normal. ABDOMEN: Soft, nontender, nondistended. MUSCULOSKELETAL: No C/C/E. NEURO: The patient moves all extremities. The patient had some muscle contractures related to prior neurological disease. SKIN: Moist. PSYCH: Patient is alert, awake and oriented x3. LABORATORY DATA: Sodium 140, potassium 3.5, chloride 108, carbon dioxide 24, BUN 21, creatinine 0.6, glucose 142, AST 71, ALT 71, WBC 14, hemoglobin 10.2, platelet count 302. MEDICATIONS: Heparin 5000 subcu every 8 hours, Levemir 15 units subcu at bedtime, regular insulin sliding scale medium protocol, Protonix, phenobarbital, ceftriaxone. ASSESSMENT AND PLAN: This is a 47-year-old gentleman who presented with diabetic ketoacidosis. Anion gap closed, insulin drip was overlapped with Levemir and then turned off last night. The patient tolerates oral nutrition well. No nausea, no vomiting. His vital signs were stable. He is controlling his airways perfectly. He is comfortable. He is not in respiratory or otherwise distress. We will continue with maintaining euvolemia, euglycemia, normothermia and oxygen saturation more than 90%. We will continue with DVT, GI prophylaxis. Okay to downgrade to Telemetry. ccm time 40 min Eugene Ford MD MTDD
--- NOTE | 2017-08-09 12:47 | PN ---
DATE: 08/09/2017 SUBJECTIVE: He is in the Intensive Care Unit. He slept fairly well. He is in better spirits this morning. His blood pressure is little better. Discussed with the steam heating installer in the ICU. They stopped the IV insulin drip. He is on heparin, insulin coverage Levemir, phenobarbital, Protonix and Rocephin. PHYSICAL EXAMINATION: VITAL SIGNS: Temp 98.3, 60 pulse, 20 respiratory rate, 98% O2 sat on room air. HEENT: Head is atraumatic, normocephalic. HEART: Regular rate. LUNGS: Decreased breath sounds. ABDOMEN: Soft. EXTREMITIES: with cerebral palsy. LABORATORY DATA: He had blood tests. His white count yesterday was 23, now it is down to 14. He has 10.2 hemoglobin, 29.5 hematocrit with 302 platelets. He has a 140 sodium, potassium is 3.5. We will give him some potassium. BUN is 21, creatinine 0.6, GFR is greater than 60, sugar is 142 now and 187, calcium is 8.1, phosphorus is 2.2, total bili is 0.2, AST is 71, ALT is 71, alkaline phosphatase 63, total protein is 5.8, albumin is 3.1, TSH is 3.4. ASSESSMENT AND PLAN: He is being seen by the steam heating installer and mri manager, waiting for Infectious Disease. We will continue with Rocephin. We are going to check the labs tomorrow. He is starting to improve. He refused physical therapy. Discussed at length with him how he is improving, watch his blood sugars, make sure the white count decreases. Khurram Olmedo DO MTDJosé Manuel
[2017-08-09] MEDS: Insulin Lispro (humaLOG) LOW Coverage SC SCH ×2 (16:38→22:06)
[2017-08-09] MEDS: Insulin Lispro 1 UNITS/0.01 ML SC SCH (16:52)
--- NOTE | 2017-08-09 19:12 | PN ---
DATE: 08/09/2017 ENDOCRINOLOGY FOLLOWUP NOTE SUBJECTIVE: This is a 47-year-old male with history of uncontrolled type 1 insulin-dependent diabetes, presenting here with marked hyperglycemic accelerations, presenting with diabetic ketoacidosis and dehydration with intractable vomiting episode, status n.p.o. overnight as noted. His oral intake still remains variable at this time. His glucose fluctuations , ranged from 144 to 210 and 342 mg/dL. His latest chemistry shows a BUN of 21. Sodium 140, potassium 3.5, chloride 108, CO2 of 24. Glucose of 187. Creatinine 0.6. ASSESSMENT: This is a 47-year-old male presenting here with intractable vomiting, nausea and upper abdominal pain from a cruise[place]liner [place], was evaluated to be in diabetic ketoacidosis, dehydration with spurious hyponatremia and hyperkalemia as noted thereof. PLAN: Management was discussed with the patient and staff. We will modify his current insulin regimen to a more physiologic basal and bolus insulin drug combination as ordered. We will increase his basal insulin with Levemir to be given as 20 units subcu at bedtime daily, to start tonight. We will also discontinue the regular insulin coverage and a fixed prandial regimen to prevent his glucose getting fluctuations especially postprandially. We will add Humalog given as 10 units subcu t.i.d. before meals to start today. We will modify the coverage scale to obviate hypoglycemia and detailed orders will be given. It would have been ideal if he could continue the vigorous IV hydration to really optimize his fluid and electrolyte losses, especially with increased osmotic diuresis as expected. We will follow the patient. iWnnie Ellis MD
[2017-08-09] MEDS ORDERED: Insulin Detemir 100 units/ml Vial (Levemir) SC SCH (22:00)
[2017-08-10] MEDS: Pantoprazole 40 mg EC Tab PO SCH ×2 (06:17→10:00)
[2017-08-10] MEDS ORDERED: Dextrose 50% SYRINGE Inj (50 ml) ONE (06:37)
[2017-08-10] MEDS ORDERED: Dextrose 50% SYRINGE Inj (50 ml) IVP STA (06:38)
--- NOTE | 2017-08-10 06:38 | CP.PCM.PN ---
Subjective - Date & Time of Evaluation Date of Evaluation: 08/10/17 Time of Evaluation: 06:37 - Subjective Subjective: S: Feels drowsy. No other complaints. Seen for FSBS <29 mg %. Medical record was reviewed. O: Last Vital Signs 3 Temp 98.1 F 08/09/17 14:00 Pulse 61 08/09/17 14:00 Resp 18 08/09/17 14:00 BP 129/72 08/09/17 14:00 Pulse Ox 100 08/09/17 14:00 Awake, alert. Not in distress. LUNGS: Normal breathing pattern. A: Hypoglycemia. P:Dextrose 50% , 50 CC IV x 1. Objective - Vital Signs/Intake and Output Vital Signs (last 24 hours): Temp Pulse Resp BP Pulse Ox 98.1 F 61 18 129/72 100 08/09/17 14:00 08/09/17 14:00 08/09/17 14:00 08/09/17 14:00 08/09/17 14:00 Intake and Output: 08/09/17 08/10/17 18:59 06:59 Intake Total 1420 540 Output Total 640 Balance 780 540 - Medications Medications: Current Medications Heparin Sodium (Porcine) (Heparin) 5,000 units SC Q8H [facility] PR[facility] Reason: Protocol Last Admin: 08/10/17 06:16 Dose: Not Given Ceftriaxone Sodium (Rocephin 1 Gram Ivpb) 1 gm in 100 mls @ 100 mls/hr IVPB DAILY [facility] PR[facility] Reason: Protocol Last Admin: 08/09/17 09:33 Dose: 100 mls/hr Insulin Detemir (Levemir) 20 unit SC HS [facility] Last Admin: 08/09/17 22:54 Dose: 20 units Insulin Human Lispro (Humalog) 10 units SC AC [facility] Last Admin: 08/09/17 16:52 Dose: 10 units Insulin Human Lispro (Humalog Low) 0 units SC ACHS [facility] PRN Reason: Protocol Last Admin: 08/09/17 22:06 Dose: Not Given Carbamazepine [ Carbamazepine Er] 400 Mg 800 mg PO Q12 [facility] Last Admin: 08/09/17 22:51 Dose: 800 mg Carbamazepine [ Carbamazepine Er] 200 Mg 200 mg PO Q12 [facility] Last Admin: 08/09/17 22:52 Dose: 200 mg Pantoprazole Sodium (Protonix Ec Tab) 40 mg PO 0600 [facility] Last Admin: 08/10/17 06:17 Dose: Not Given Phenobarbital (Phenobarbital Tab) 64.8 mg PO 2200 [facility] Last Admin: 08/09/17 22:57 Dose: 64.8 mg Phenobarbital (Phenobarbital Tab) 32.4 mg PO DAILY [facility] Last Admin: 08/09/17 10:36 Dose: 32.4 mg - Labs Labs: 08/09/17 06:00 08/09/17 06:00 PT 11.4 SECONDS (9.4-12.5) 08/08/17 08:50 INR 0.99 (0.93-1.08) 08/08/17 08:50 APTT 27.5 Seconds (25.1-36.5) 08/08/17 08:50
[2017-08-10 07:21] LABS: HEMOGLOBIN 10.6 g/dL (14.0-18.0); MEAN CELL VOLUME 90.8 fl (80.0-105.0); MEAN CORPUSCULAR HEMOGLOBIN 31.5 pg (25.0-35.0); MEAN CORPUSCULAR HGB CONC 34.8 g/dl (31.0-37.0); MEAN PLATELET VOLUME 9.7 fl (7.0-11.0); RBC 3.36 10^6/uL (3.5-6.1); RED CELL DISTRIBUTION WIDTH 13.3 % (11.5-14.5); WHITE BLOOD COUNT 7.4 10^3/ul (4.5-11.0)
[2017-08-10 07:23] LABS: ALB/GLOB RATIO 1.2 (1.1-1.8); ALBUMIN 3.5 g/dL (3.0-4.8); ALT/SGPT 369 U/L (7-56); AST/SGOT 740 U/L (17-59); BLOOD UREA NITROGEN 14 mg/dL (7-21); CALCIUM 8.8 mg/dL (8.4-10.5); GFR AFRICAN-AMERICAN > 60; GFR NON-AFRICAN AMERICAN > 60
[2017-08-10] MEDS: Insulin Lispro 1 UNITS/0.01 ML SC SCH ×4 (07:30→17:20)
--- NOTE | 2017-08-10 07:37 | HP ---
HISTORY OF PRESENT ILLNESS: I saw Daniel in the emergency room of [facility]. He comes [place] a cruise ship. I was called down to admit him to the hospital. He has a past medical history of insulin-dependent diabetes mellitus. He has presently a diagnosis of DKA from the cruise ship. He did not want to leave the hospital, on the cruise ship as he was not feeling well, he had nausea, vomiting. He had loose stools. He just was not feeling well; his blood sugars were as high as 700, I understand. PAST MEDICAL HISTORY: He has a history of cerebral palsy, type 1 diabetes. SOCIAL HISTORY: He never smoked. No alcohol. No drugs. ALLERGIES: HE IS ALLERGIC TO MORPHINE. MEDICATIONS: He takes insulin. Although he is throwing up, he is very demanding and wants to eat. I am not going to feed him while he is throwing up. He will have Zofran. REVIEW OF SYSTEMS: No fevers, no vision changes, no hearing changes, no shortness of breath, no chest pain. With nausea, vomiting. He is having no back pain. No problems urinating. No skin rashes. He is dizzy, but no headache. No focal weakness. He has polydipsia, polyuria. No easy bleeding. No depressions. No suicidal thoughts. PHYSICAL EXAMINATION: VITAL SIGNS: He has a 97.3 temperature, 80 pulse, 17 respiratory rate, 127/62 blood pressure, 99% O2 sat. HEENT: His head is atraumatic, normocephalic. He is alert. He is a little bit toxic in the bed, uncomfortable with the nauseous feeling. Throat is dry. HEART: Regular rate. LUNGS: Decreased breath sounds, but clear. No meningeal signs. ABDOMEN: Soft, nontender. Positive bowel sounds. EXTREMITIES: Kind of contracted with the hands from CP. No edema. SKIN: For the most part is pale, but warm and dry. No apparent rashes or ulcers. NECK: Thyroid midline. No palpable appreciable lymphadenopathy. NEUROLOGIC: Alert and oriented x3 with contracture of the extremities from the CP. LABORATORY DATA: He had multiple tests done. He has 136 sodium, potassium is 5.8, I did give him Kayexalate water. He has a BUN of 27, creatinine 0.8. After fluids, his blood sugars have been up to 547, I will put him on coverage. Calcium is 8.9. Total bili is 0.3, AST is 55, ALT is 46, alk phos is 90. First troponin is less than 0.01. Total protein 6.7. Urine is clean. Lactate is 0.9. He is in a 7.3 pH. INR is 0.99. He has 23,000 white count, 11.7 hemoglobin, 33.8 hematocrit with 369 platelets. We will get him some Rocephin and he is going to get some Dr. Ford's consult from Infectious Disease. He is going to go to the Intensive Care Unit for DKA and probably an infection, yet to find the source. He is on heparin subcu, insulin coverage. Consult with Dr. Ellis, IV fluids and also Dr. Ford, and is also doing to the Intensive Care Unit. Khurram Olmedo DO
[2017-08-10] MEDS: Insulin Lispro (humaLOG) LOW Coverage SC SCH ×4 (07:49→21:26)
[2017-08-10] MEDS ORDERED: Insulin Detemir 100 units/ml Vial (Levemir) SC SCH ×2 (08:16→22:00)
[2017-08-10] MEDS ORDERED: Potassium Chloride 20 mEq ER Tab PO ONE (08:21)
[2017-08-10] MEDS ORDERED: Sodium Chloride 0.45% 1,000 ML IV SCH (08:30)
--- NOTE | 2017-08-10 08:40 | PN ---
DATE: 08/10/2017 SUBJECTIVE: I saw him resting comfortably in bed. He seems to be comfortable at this time. He slept fairly well. He is kind of tired this morning. He is hungry. PHYSICAL EXAMINATION: VITAL SIGNS: He has a 98.3 temp, 68 pulse, 144/83 blood pressure, 19 respiratory rate, 98% O2 sat on room air. HEENT: His head is atraumatic, normocephalic. HEART: Regular rate. LUNGS: Decreased breath sounds, but clear. ABDOMEN: Soft. EXTREMITIES: Have contracted MCP. MEDICATIONS: He is currently on carbamazepine, heparin, insulin, Levemir, phenobarbital, Protonix, Rocephin. LABORATORY DATA: White count 7.4, first time normal; 10.6 hemoglobin, 30.5 hematocrit with a 281 platelets. 137 sodium; potassium 3.5, I am going to give him some potassium; BUN is 0.5; creatinine 60; sugars are 29 and 38, I will decrease his Levemir to 18 to 20. He has a total bili of 0.4. AST is high at 740, ALT is high at 369. I will call GI in to evaluate the elevated liver enzymes, which were shun high and new, a big change. Total protein 6.5. ASSESSMENT AND PLAN: I will continue with aggressive treatment and care. I am going to him add some IV fluids at 30 mL an hour to help the liver. Daniel Baxter who now has very elevated liver function tests. Khurram Olmedo DO
[2017-08-10] MEDS: cefTRIAXone 1 gm 1 GM/100 ML BAG IVPB SCH (09:55)
[2017-08-10] MEDS: CARBAMAZEPINE 400 MG PO SCH ×2 (09:58→21:33)
[2017-08-10] MEDS: CARBAMAZEPINE 200 MG PO SCH ×2 (10:01→21:32)
--- NOTE | 2017-08-10 12:52 | CP.PCM.CON ---
<Ralf Whitman - Last Filed: 08/10/17 12:55> History of Present Illness - History of Present Illness History of Present Illness: PGY5 GI Fellow Consult Note Patient is a 47yo male with PMHx significant for DM, insulin-dependent, cerebral palsy, seizure disorder with Vagus nerve stimulator device (placed in 1998) who presented [place] the hospital [place] cruise ship after he was feeling unwell for 4 days with nausea, vomiting and diarrhea. Patient admits he had been missing doses of his Lantus and was found to be in DKA onboard his ship and started on an insulin gtt and transferred to our ED. Patient was admitted to the ICU and since has been stepped down to the regular medical floor. He initially had abdominal pain but this has since resolved. Our service has been consulted for abnormal LFTs. Patient denies any alcohol use recently or history of EtOH abuse, IVDU and has had no history of chronic liver disease per his account. Currently, no complaints and somewhat agitated as he is eager to leave the hospital. 12 system ROS performed and negative except where stated PMHx: See HPI PSHx: Vagus nerve stimulator FHx: Discussed with patient and he denies significant family history Social: Denies tobacco, EtOH or illicit drug use Endo: No prior endoscopic evaluations Past Patient History - Infectious Disease Hx of Infectious Diseases: None - Past Social History Smoking Status: Never Smoked - CARDIAC Hx Cardiac Disorders: Yes Hx Hypercholesterolemia: Yes - PULMONARY Hx Respiratory Disorders: Yes (SMOKES 1/2 PPD CIGARETTES) - NEUROLOGICAL Hx Seizures: Yes Other/Comment: Cerebral palsy - HEENT Hx HEENT Problems: No - RENAL Hx Chronic Kidney Disease: No - ENDOCRINE/METABOLIC Hx Diabetes Mellitus Type 1: Yes - HEMATOLOGICAL/ONCOLOGICAL Hx Blood Disorders: No - INTEGUMENTARY Hx Dermatological Problems: No - MUSCULOSKELETAL/RHEUMATOLOGICAL Hx Musculoskeletal Disorders: Yes Hx Falls: Yes - GASTROINTESTINAL Hx Gastrointestinal Disorders: No - GENITOURINARY/GYNECOLOGICAL Hx Genitourinary Disorders: No - PSYCHIATRIC Hx Substance Use: No - SURGICAL HISTORY Hx Surgeries: Yes (VNS IMPLANT-vagus nerve stimulation-CONTROL OF SZ) Meds Allergies/Adverse Reactions: Allergies Allergy/AdvReac Type Severity Reaction Status Date / Time morphine Allergy RASH Verified 08/08/17 18:18 - Medications Medications: Current Medications Heparin Sodium (Porcine) (Heparin) 5,000 units SC Q8H [facility] PRN Reason: Protocol Last Admin: 08/10/17 06:16 Dose: Not Given Sodium Chloride (Sodium Chloride 0.45%) 1,000 mls @ 40 mls/hr IV .Q24H [facility] Last Admin: 08/10/17 09:55 Dose: 40 mls/hr Insulin Detemir (Levemir) 18 unit SC HS [facility] Insulin Human Lispro (Humalog) 10 units SC AC [facility] Last Admin: 08/10/17 11:57 Dose: Not Given Insulin Human Lispro (Humalog Low) 0 units SC ACHS [facility] PRN Reason: Protocol Last Admin: 08/10/17 11:57 Dose: Not Given Carbamazepine [ Carbamazepine Er] 400 Mg 800 mg PO Q12 [facility] Last Admin: 08/10/17 09:58 Dose: 800 mg Carbamazepine [ Carbamazepine Er] 200 Mg 200 mg PO Q12 [facility] Last Admin: 08/10/17 10:01 Dose: 200 mg Pantoprazole Sodium (Protonix Ec Tab) 40 mg PO 0600 [facility] Last Admin: 08/10/17 10:00 Dose: 40 mg Phenobarbital (Phenobarbital Tab) 64.8 mg PO 2200 [facility] Last Admin: 08/09/17 22:57 Dose: 64.8 mg Phenobarbital (Phenobarbital Tab) 32.4 mg PO DAILY [facility] Last Admin: 08/10/17 09:59 Dose: 32.4 mg Physical Exam - Constitutional Appears: Non-toxic, No Acute Distress - Eye Exam Eye Exam: Nystagmus, PERRL - ENT Exam ENT Exam: Mucous Membranes Moist - Respiratory Exam Respiratory Exam: Clear to Auscultation Bilateral. absent: Rales, Rhonchi, Wheezes - Cardiovascular Exam Cardiovascular Exam: RRR, +S1, +S2 - GI/Abdominal Exam GI & Abdominal Exam: Normal Bowel Sounds, Soft. absent: Distended, Firm, Guarding, Hernia, Mass, Organomegaly, Rigid, Tenderness - Extremities Exam Extremities exam: Positive for: normal inspection. Negative for: pedal edema - Neurological Exam Neurological exam: Alert, Oriented x3 - Psychiatric Exam Psychiatric exam: Normal Affect, Normal Mood - Skin Skin Exam: Dry, Warm Results - Vital Signs Recent Vital Signs: Last Vital Signs Temp 98.3 F 08/10/17 06:00 Pulse 68 08/10/17 06:00 Resp 19 08/10/17 06:00 BP 144/83 08/10/17 06:00 Pulse Ox 98 08/10/17 06:00 - Labs Result Diagrams: 08/10/17 06:51 08/10/17 06:51 Labs: Laboratory Results - last 24 hr 08/09/17 08/09/17 08/09/17 06:00 06:00 16:10 WBC RBC Hgb Hct MCV MCH MCHC RDW Plt Count MPV Sodium Potassium Chloride Carbon Dioxide Anion Gap BUN Creatinine Est GFR ( Amer) Est GFR (Non-Af Amer) POC Glucose (mg/dL) 166 H Random Glucose Hemoglobin A1c 8.5 H Calcium Total Bilirubin AST ALT Alkaline Phosphatase Total Protein Albumin Globulin Albumin/Globulin Ratio Procalcitonin 0.34 08/09/17 08/10/17 08/10/17 21:18 06:35 06:51 WBC 7.4 D RBC 3.36 L Hgb 10.6 L Hct 30.5 L MCV 90.8 MCH 31.5 MCHC 34.8 RDW 13.3 Plt Count 281 MPV 9.7 Sodium Potassium Chloride Carbon Dioxide Anion Gap BUN Creatinine Est GFR ( Amer) Est GFR (Non-Af Amer) POC Glucose (mg/dL) 157 H 29 L* Random Glucose Hemoglobin A1c Calcium Total Bilirubin AST ALT Alkaline Phosphatase Total Protein Albumin Globulin Albumin/Globulin Ratio Procalcitonin 08/10/17 08/10/17 06:51 07:02 WBC RBC Hgb Hct MCV MCH MCHC RDW Plt Count MPV Sodium 137 Potassium 3.5 L Chloride 102 Carbon Dioxide 28 Anion Gap 11 BUN 14 Creatinine 0.5 L Est GFR ( Amer) > 60 Est GFR (Non-Af Amer) > 60 POC Glucose (mg/dL) 145 H Random Glucose 38 L* D Hemoglobin A1c Calcium 8.8 Total Bilirubin 0.4 AST 740 H D ALT 369 H Alkaline Phosphatase 87 Total Protein 6.5 Albumin 3.5 Globulin 3.0 Albumin/Globulin Ratio 1.2 Procalcitonin Assessment & Plan - Assessment and Plan (Free Text) Assessment: Patient is a 47yo male with PMHx significant for DM, insulin-dependent, cerebral palsy, seizure disorder with Vagus nerve stimulator device (placed in 1998)[facility] who presented to the hospital from a cruise ship after he was feeling unwell for 4 days with nausea, vomiting and diarrhea -Abnormal LFTs - hepatocellular pattern Plan: -Recommend Hepatitis serologies, autoimmune markers: TAJ, AMA, ASMA, IgG, IgM -Abdominal U/S ordered -Monitor CMP -No evidence of synthetic dysfunction -Patient can be D/C from GI standpoint with close outpatient follow up - Date & Time Date: 08/10/17 Time: 12:15 <Noe Pierce - Last Filed: 08/10/17 13:26> Meds - Medications Medications: Current Medications Heparin Sodium (Porcine) (Heparin) 5,000 units SC Q8H [facility] PRN Reason: Protocol Last Admin: 08/10/17 06:16 Dose: Not Given Sodium Chloride (Sodium Chloride 0.45%) 1,000 mls @ 40 mls/hr IV .Q24H [facility] Last Admin: 08/10/17 09:55 Dose: 40 mls/hr Insulin Detemir (Levemir) 18 unit SC HS [facility] Insulin Human Lispro (Humalog) 10 units SC AC [facility] Last Admin: 08/10/17 11:57 Dose: Not Given Insulin Human Lispro (Humalog Low) 0 units SC ACHS [facility] PRN Reason: Protocol Last Admin: 08/10/17 11:57 Dose: Not Given Carbamazepine [ Carbamazepine Er] 400 Mg 800 mg PO Q12 [facility] Last Admin: 08/10/17 09:58 Dose: 800 mg Carbamazepine [ Carbamazepine Er] 200 Mg 200 mg PO Q12 [facility] Last Admin: 08/10/17 10:01 Dose: 200 mg Pantoprazole Sodium (Protonix Ec Tab) 40 mg PO 0600 [facility] Last Admin: 08/10/17 10:00 Dose: 40 mg Phenobarbital (Phenobarbital Tab) 64.8 mg PO 2200 [facility] Last Admin: 08/09/17 22:57 Dose: 64.8 mg Phenobarbital (Phenobarbital Tab) 32.4 mg PO DAILY [facility] Last Admin: 08/10/17 09:59 Dose: 32.4 mg Results - Vital Signs Recent Vital Signs: Last Vital Signs Temp 98.3 F 08/10/17 06:00 Pulse 68 08/10/17 06:00 Resp 19 08/10/17 06:00 BP 144/83 08/10/17 06:00 Pulse Ox 98 08/10/17 06:00 - Labs Result Diagrams: 08/10/17 06:51 08/10/17 06:51 Labs: Laboratory Results - last 24 hr 08/09/17 08/09/17 08/09/17 06:00 16:10 21:18 WBC RBC Hgb Hct MCV MCH MCHC RDW Plt Count MPV Sodium Potassium Chloride Carbon Dioxide Anion Gap BUN Creatinine Est GFR ( Amer) Est GFR (Non-Af Amer) POC Glucose (mg/dL) 166 H 157 H Random Glucose Hemoglobin A1c 8.5 H Calcium Total Bilirubin AST ALT Alkaline Phosphatase Total Protein Albumin Globulin Albumin/Globulin Ratio 08/10/17 08/10/17 08/10/17 06:35 06:51 06:51 WBC 7.4 D RBC 3.36 L Hgb 10.6 L Hct 30.5 L MCV 90.8 MCH 31.5 MCHC 34.8 RDW 13.3 Plt Count 281 MPV 9.7 Sodium 137 Potassium 3.5 L Chloride 102 Carbon Dioxide 28 Anion Gap 11 BUN 14 Creatinine 0.5 L Est GFR ( Amer) > 60 Est GFR (Non-Af Amer) > 60 POC Glucose (mg/dL) 29 L* Random Glucose 38 L* D Hemoglobin A1c Calcium 8.8 Total Bilirubin 0.4 AST 740 H D ALT 369 H Alkaline Phosphatase 87 Total Protein 6.5 Albumin 3.5 Globulin 3.0 Albumin/Globulin Ratio 1.2 08/10/17 07:02 WBC RBC Hgb Hct MCV MCH MCHC RDW Plt Count MPV Sodium Potassium Chloride Carbon Dioxide Anion Gap BUN Creatinine Est GFR ( Amer) Est GFR (Non-Af Amer) POC Glucose (mg/dL) 145 H Random Glucose Hemoglobin A1c Calcium Total Bilirubin AST ALT Alkaline Phosphatase Total Protein Albumin Globulin Albumin/Globulin Ratio Attending/Attestation - Attestation I have personally seen and examined this patient.: Yes I have fully participated in the care of the patient.: Yes I have reviewed all pertinent clinical information: Yes Notes (Text): 08/10/17 13:24 This is a 47 year old male with PMHx significant for DM, insulin-dependent, cerebral palsy, seizure disorder with Vagus nerve stimulator device (placed in 1998)[facility] who presented to the hospital from a cruise ship after he was feeling unwell for 4 days with nausea, vomiting and diarrhea now resolving on ceftriaxone. Abnormal LFTs - hepatocellular pattern. Recommend hepatitis and autoimmune serologies. Patient can be D/C from GI standpoint with close outpatient follow up
[2017-08-10 16:29] LABS: IMMUNOGLOBULIN G 673.4 mg/dL (700.0-1600.0); IMMUNOGLOBULIN M 67.2 mg/dL (40.0-230.0)
--- NOTE | 2017-08-10 17:46 | CP.PCM.PN ---
Subjective - Date & Time of Evaluation Date of Evaluation: 08/10/17 Time of Evaluation: 10:50 - Subjective Subjective: No nausea, no abdominal pain, no headache, no fevers. Objective - Vital Signs/Intake and Output Vital Signs (last 24 hours): Temp Pulse Resp BP Pulse Ox 98.3 F 68 19 144/83 98 08/10/17 06:00 08/10/17 06:00 08/10/17 06:00 08/10/17 06:00 08/10/17 06:00 Intake and Output: 08/10/17 08/10/17 06:59 18:59 Intake Total 540 Balance 540 - Medications Medications: Current Medications Heparin Sodium (Porcine) (Heparin) 5,000 units SC Q8H [facility] PRN Reason: Protocol Last Admin: 08/10/17 06:16 Dose: Not Given Sodium Chloride (Sodium Chloride 0.45%) 1,000 mls @ 40 mls/hr IV .Q24H [facility] Insulin Detemir (Levemir) 18 unit SC HS [facility] Insulin Human Lispro (Humalog) 10 units SC AC [facility] Last Admin: 08/09/17 16:52 Dose: 10 units Insulin Human Lispro (Humalog Low) 0 units SC ACHS [facility] PRN Reason: Protocol Last Admin: 08/10/17 07:49 Dose: Not Given Carbamazepine [ Carbamazepine Er] 400 Mg 800 mg PO Q12 [facility] Last Admin: 08/09/17 22:51 Dose: 800 mg Carbamazepine [ Carbamazepine Er] 200 Mg 200 mg PO Q12 [facility] Last Admin: 08/09/17 22:52 Dose: 200 mg Pantoprazole Sodium (Protonix Ec Tab) 40 mg PO 0600 [facility] Last Admin: 08/10/17 06:17 Dose: Not Given Phenobarbital (Phenobarbital Tab) 64.8 mg PO 2200 [facility] Last Admin: 08/09/17 22:57 Dose: 64.8 mg Phenobarbital (Phenobarbital Tab) 32.4 mg PO DAILY [facility] Last Admin: 08/09/17 10:36 Dose: 32.4 mg - Labs Labs: 08/10/17 06:51 08/10/17 06:51 PT 11.4 SECONDS (9.4-12.5) 08/08/17 08:50 INR 0.99 (0.93-1.08) 08/08/17 08:50 APTT 27.5 Seconds (25.1-36.5) 08/08/17 08:50 - Constitutional Appears: Non-toxic, Chronically Ill - Head Exam Head Exam: NORMAL INSPECTION - ENT Exam ENT Exam: Mucous Membranes Moist - Neck Exam Neck Exam: absent: Meningismus - Respiratory Exam Respiratory Exam: Decreased Breath Sounds - Cardiovascular Exam Cardiovascular Exam: +S1, +S2 - GI/Abdominal Exam GI & Abdominal Exam: Soft. absent: Tenderness Assessment and Plan - Assessment and Plan (Free Text) Plan: Assessment Systemic Inflammatory response syndrome, consider due to diabetic ketoacidosis, probably from missed insulin doses - currently no evidence of infection IDDM cerebral palsy Plan blood, urine cx are negative, PCT is normal; CXR does not show infiltrates, LFT' s are ok will continue to monitor clinically off antibiotics
[2017-08-10 17:49] LABS: HEPATITIS B SURFACE AG Negative (NEGATIVE)
[2017-08-10 17:55] LABS: HEPATITIS A IGM NEGATIVE (NEGATIVE); HEPATITIS B CORE AB NEGATIVE (NEGATIVE)
[2017-08-10 18:06] LABS: HEPATITIS C ANTIBODY NEGATIVE (NEGATIVE)
--- NOTE | 2017-08-10 23:38 | PN ---
DATE: 08/10/2017 ENDOCRINOLOGY FOLLOWUP NOTE LOCATION: Room 572. SUBJECTIVE: This is a 47-year-old male with recent uncontrolled type 1 insulin-dependent diabetes presenting here with intractable vomiting and upper abdominal pain and evaluated to be in diabetic ketoacidosis and dehydration and is now being followed closely for metabolic management. He received intensive insulin therapy with an insulin drip infusion in the ICU together with vigorous IV hydration as given. He has since then improved clinically and metabolically as noted thereof and has been transferred out of ICU to the regular floor. However, his oral intake remains very poor and suboptimal as per the nursing staff. His glucose values today were low. 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 His chemistries today showed a BUN of 14, sodium 137, potassium 3.7, chloride 102, CO2 of 28, glucose 38 and creatinine 0.5. His liver transaminases are elevated as noted with an ALT of 369 and AST of 740. ASSESSMENT: This is a 47-year-old male with uncontrolled and decompensated type 1 insulin-dependent diabetes with resolved diabetic ketoacidosis and dehydration, but with episodic bouts of symptomatic hypoglycemia related to variable and suboptimal meal portions as noted. PLAN OF MANAGEMENT: With the variability of his oral intake, we will lower his basal and bolus insulin regimen as ordered to start today. We will lower the Humalog down to 6 units subcu t.i.d. before meals to start at dinner time today as ordered. We will also lower the basal insulin down to 12 units subcu at bedtime daily to start tonight. We will continue the modified coverage scale using Humalog insulin as given to obviate hypoglycemia. We will continue the IV hydration as given and we will also obtain serial chemistries and supplement accordingly as needed. We will follow with you. Winnie Ellis MD
[2017-08-11] MEDS: Pantoprazole 40 mg EC Tab PO SCH (06:34)
[2017-08-11] MEDS ORDERED: Insulin Lispro 1 UNITS/0.01 ML SC SCH (07:30)
[2017-08-11 07:35] LABS: HEMOGLOBIN 10.1 g/dL (14.0-18.0); MEAN CORPUSCULAR HEMOGLOBIN 31.5 pg (25.0-35.0); MEAN CORPUSCULAR HGB CONC 34.9 g/dl (31.0-37.0); MEAN PLATELET VOLUME 9.6 fl (7.0-11.0); RBC 3.21 10^6/uL (3.5-6.1); RED CELL DISTRIBUTION WIDTH 13.1 % (11.5-14.5); WHITE BLOOD COUNT 4.1 10^3/ul (4.5-11.0)
[2017-08-11 07:56] LABS: ALB/GLOB RATIO 1.2 (1.1-1.8); ALBUMIN 3.5 g/dL (3.0-4.8); ALT/SGPT 278 U/L (7-56); AST/SGOT 245 U/L (17-59); BLOOD UREA NITROGEN 13 mg/dL (7-21); CALCIUM 8.9 mg/dL (8.4-10.5); GFR AFRICAN-AMERICAN > 60; GFR NON-AFRICAN AMERICAN > 60
[2017-08-11 08:26] VITALS: BP 130/77; PULSE 68; RESP 18; TEMP 98.6; O2SAT 100
[2017-08-11] MEDS: Insulin Lispro (humaLOG) LOW Coverage SC SCH (08:47)
--- NOTE | 2017-08-11 09:42 | CP.PCM.PN ---
<Ralf Wihtman - Last Filed: 08/11/17 09:39> Subjective - Date & Time of Evaluation Date of Evaluation: 08/11/17 Time of Evaluation: 07:20 - Subjective Subjective: PGY5 GI Fellow Progress Note Patient seen and examined bedside this morning. Evaluated earlier in his room without issue. His mother is currently hospitalized and patient is seen on reevaluation at bedside in his mother's room. He states he is feeling well and has no complaints today. All abdominal pain, nausea and vomiting resolved. Patient drinking coffee without issue at bedside. No events overnight. Very eager to be discharged. 12 system ROS performed and negative except where stated. Objective - Vital Signs/Intake and Output Vital Signs (last 24 hours): Temp Pulse Resp BP Pulse Ox 98.6 F 68 18 130/77 100 08/11/17 06:00 08/11/17 06:00 08/11/17 06:00 08/11/17 06:00 08/11/17 06:00 Intake and Output: 08/11/17 08/11/17 06:59 18:59 Intake Total 1080 Balance 1080 - Medications Medications: Current Medications Heparin Sodium (Porcine) (Heparin) 5,000 units SC Q8H [facility] PRN Reason: Protocol Last Admin: 08/11/17 06:50 Dose: Not Given Sodium Chloride (Sodium Chloride 0.45%) 1,000 mls @ 40 mls/hr IV .Q24H [facility] Last Admin: 08/10/17 09:55 Dose: 40 mls/hr Insulin Detemir (Levemir) 12 unit SC HS [facility] Last Admin: 08/10/17 21:23 Dose: 12 units Insulin Human Lispro (Humalog Low) 0 units SC ACHS [facility] PRN Reason: Protocol Last Admin: 08/11/17 08:47 Dose: Not Given Insulin Human Lispro (Humalog) 8 units SC AC [facility] Last Admin: 08/11/17 08:47 Dose: Not Given Carbamazepine [ Carbamazepine Er] 400 Mg 800 mg PO Q12 [facility] Last Admin: 08/10/17 21:33 Dose: 800 mg Carbamazepine [ Carbamazepine Er] 200 Mg 200 mg PO Q12 [facility] Last Admin: 08/10/17 21:32 Dose: 200 mg Pantoprazole Sodium (Protonix Ec Tab) 40 mg PO 0600 [facility] Last Admin: 08/11/17 06:34 Dose: 40 mg Phenobarbital (Phenobarbital Tab) 64.8 mg PO 2200 [facility] Last Admin: 08/10/17 22:13 Dose: 64.8 mg Phenobarbital (Phenobarbital Tab) 32.4 mg PO DAILY [facility] Last Admin: 08/10/17 09:59 Dose: 32.4 mg - Labs Labs: 08/11/17 07:00 08/11/17 07:00 PT 11.4 SECONDS (9.4-12.5) 08/08/17 08:50 INR 0.99 (0.93-1.08) 08/08/17 08:50 APTT 27.5 Seconds (25.1-36.5) 08/08/17 08:50 - Constitutional Appears: Non-toxic, No Acute Distress - Eye Exam Eye Exam: Nystagmus, PERRL - ENT Exam ENT Exam: Mucous Membranes Moist - Respiratory Exam Respiratory Exam: Clear to Ausculation Bilateral. absent: Rales, Rhonchi, Wheezes - Cardiovascular Exam Cardiovascular Exam: RRR, +S1, +S2 - GI/Abdominal Exam GI & Abdominal Exam: Soft, Normal Bowel Sounds. absent: Distended, Firm, Guarding, Rigid, Tenderness, Organomegaly - Extremities Exam Extremities Exam: absent: Pedal Edema Additional comments: RUE contracture - Neurological Exam Neurological Exam: Alert, Awake, Oriented x3 - Psychiatric Exam Psychiatric exam: Normal Affect, Normal Mood - Skin Skin Exam: Dry, Warm Assessment and Plan - Assessment and Plan (Free Text) Assessment: Patient is a 47yo male with PMHx significant for DM, insulin-dependent, cerebral palsy, seizure disorder with Vagus nerve stimulator device (placed in 1998)[facility] who presented to the hospital from a cruise ship after he was feeling unwell for 4 days with nausea, vomiting and diarrhea -Abnormal LFTs - hepatocellular pattern Plan: -Hepatitis serologies unremarkable -Autoimmune markers pending -LFTs downtrending -Abdominal U/S taken, pending -No evidence of synthetic dysfunction -Patient can be D/C from GI standpoint with close outpatient follow up with his PCP in [place], [place] <Raul Cody - Last Filed: 08/11/17 09:45> Objective - Vital Signs/Intake and Output Vital Signs (last 24 hours): Temp Pulse Resp BP Pulse Ox 98.6 F 68 18 130/77 100 08/11/17 06:00 08/11/17 06:00 08/11/17 06:00 08/11/17 06:00 08/11/17 06:00 Intake and Output: 08/11/17 08/11/17 06:59 18:59 Intake Total 1080 Balance 1080 - Medications Medications: Current Medications Heparin Sodium (Porcine) (Heparin) 5,000 units SC Q8H [facility] PRN Reason: Protocol Last Admin: 08/11/17 06:50 Dose: Not Given Sodium Chloride (Sodium Chloride 0.45%) 1,000 mls @ 40 mls/hr IV .Q24H [facility] Last Admin: 08/10/17 09:55 Dose: 40 mls/hr Insulin Detemir (Levemir) 12 unit SC HS [facility] Last Admin: 08/10/17 21:23 Dose: 12 units Insulin Human Lispro (Humalog Low) 0 units SC ACHS [facility] PRN Reason: Protocol Last Admin: 08/11/17 08:47 Dose: Not Given Insulin Human Lispro (Humalog) 8 units SC AC [facility] Last Admin: 08/11/17 08:47 Dose: Not Given Carbamazepine [ Carbamazepine Er] 400 Mg 800 mg PO Q12 [facility] Last Admin: 08/10/17 21:33 Dose: 800 mg Carbamazepine [ Carbamazepine Er] 200 Mg 200 mg PO Q12 [facility] Last Admin: 08/10/17 21:32 Dose: 200 mg Pantoprazole Sodium (Protonix Ec Tab) 40 mg PO 0600 [facility] Last Admin: 08/11/17 06:34 Dose: 40 mg Phenobarbital (Phenobarbital Tab) 64.8 mg PO 2200 [facility] Last Admin: 08/10/17 22:13 Dose: 64.8 mg Phenobarbital (Phenobarbital Tab) 32.4 mg PO DAILY [facility] Last Admin: 08/10/17 09:59 Dose: 32.4 mg - Labs Labs: 08/11/17 07:00 08/11/17 07:00 PT 11.4 SECONDS (9.4-12.5) 08/08/17 08:50 INR 0.99 (0.93-1.08) 08/08/17 08:50 APTT 27.5 Seconds (25.1-36.5) 08/08/17 08:50 Attending/Attestation - Attestation I have personally seen and examined this patient.: Yes I have fully participated in the care of the patient.: Yes I have reviewed all pertinent clinical information, including history, physical exam and plan: Yes Notes (Text): 08/11/17 09:44 47 year old male admitted with n/v and abdominal pain found to have DKA, now improved. Advised adherence to insulin regimen. Elevated lfts also noted and downtrending. Recommend outpatient follow up with GI in [place] when he returns. Ok for discharge from GI standpoint. Will sign off.
--- NOTE | 2017-08-11 10:07 | US ---
HISTORY: abnormal LFTs COMPARISON: None. TECHNIQUE: Sonographic evaluation of the abdomen. FINDINGS: LIVER: Measures 15.1 cm. There is mild diffuse increased echogenicity of the liver parenchyma. No mass. No intrahepatic bile duct dilatation. GALLBLADDER: The are two gallbladder polyps measuring 5 x 3 x 3 mm and 3 x 3 x 3 mm. There are no gallstones, wall thickening or pericholecystic fluid. The sonographic Shah's sign is negative. COMMON BILE DUCT: Measures 2.5 mm. No stones. No dilatation. PANCREAS: Unremarkable as visualized. No mass. No ductal dilatation. RIGHT KIDNEY: Measures 11.3cm. Normal echogenicity. No calculus, mass, or hydronephrosis. LEFT KIDNEY: Measures 11.9cm. Normal echogenicity. No calculus, mass, or hydronephrosis. There is a 1.3 x 0.5 x 1.2 cm septated in the lower pole. SPLEEN: Normal in size and contour. No mass. AORTA: No aneurysmal dilatation. IVC: Unremarkable. OTHER FINDINGS: None. IMPRESSION: 1.Two subcentimeter gallbladder polyps, the larger measures 5 mm. 2. No cholelithiasis or biliary dilatation. 3. Diffuse increased echogenicity in the liver may reflect hepatic steatosis however parenchymal infectious/ inflammatory etiologies cannot be entirely excluded. Clinical and laboratory correlation is advised. 4. 1.3 cm septated cyst in the lower pole of the left kidney.
[2017-08-11] MEDS: CARBAMAZEPINE 400 MG PO SCH (10:53)
[2017-08-11] MEDS: CARBAMAZEPINE 200 MG PO SCH (10:53)
--- NOTE | 2017-08-11 13:43 | PN ---
DATE: 08/11/2017 ENDOCRINOLOGY FOLLOWUP LOCATION: Room 572. This is a 47-year-old male with recent uncontrolled type 1 insulin-dependent diabetes presenting here with intractable vomiting and diffuse upper abdominal pain and is now improving clinically and metabolically as noted thereof. However, his glycemic fluctuations are still in extremes in terms of hypo to hyperglycemic accelerations as noted thereof. His glucose levels overnight were actually markedly elevated with glucose values of 323 to 377 mg/dL. His latest chemistry showed a BUN of 13, sodium 137, potassium 3.8, chloride 100, CO2 of 30, glucose 67 and creatinine 0.5. So at this time, we will modify once again his basal and bolus insulin regimen to adjust the variability of his oral intake as noted thereof. We will titrate his Levemir to 14 units subcu at bedtime daily to start tonight. We will also increase the Humalog to 8 units subcu t.i.d. before meals, to start at dinner time today as ordered. We will obtain serial chemistries and supplement accordingly as needed. We will also obtain serial thyroid studies and check his accordingly. So at this time, we will titrate his basal and bolus insulin regimen to allow for dose equilibration and increase the Humalog to 8 units subcu t.i.d. before meals to start today as ordered. We will also increase the basal insulin with Levemir to be given as 14 units subcu at bedtime daily as ordered. We will titrate incrementally as indicated to optimize metabolic control. We will follow up with you. Winnie Ellis MD
--- NOTE | 2017-08-11 18:36 | DS ---
HISTORY OF PRESENT ILLNESS: I saw him resting comfortably in bed. He did well. He has improved. He is on IV fluids, carbamazepine, heparin, insulin, potassium replacement, Levemir, phenobarbital, Protonix. He is eating well. He walked all day. PHYSICAL EXAMINATION: VITAL SIGNS: He has 98.6 temperature, pulse 68, blood pressure 130/77, respiratory rate 18, O2 saturation 100% on room air. HEENT: Head: Atraumatic, normocephalic. HEART: Regular rate. LUNGS: Decreased breath sounds, but clear. ABDOMEN: Soft. EXTREMITIES: Mild contractures from CP. LABORATORY DATA: He has a 4.1 white count, 10.1 hemoglobin, 28.9 hematocrit with platelets 231. Sodium 137, potassium 3.8, BUN 30, creatinine 0.5, GFR is greater than 60, sugar is 67, calcium is 8.9, total bilirubin is 0.3, AST 245, ALT is 278, which were much better than the day before, alkaline phosphatase 94, total protein 6.3. Overall, he is improved. He could be discharged today. I will see if arrangement could be made to take him back to [place]. He is here for DKA, high blood sugar, SIRS, increased LFTs and he has a history of cerebral palsy. Khurrma Olmedo DO
[2017-08-11] MEDS ORDERED: Insulin Detemir 100 units/ml Vial (Levemir) SC SCH (22:00)
--- NOTE | 2017-08-12 08:28 | PN ---
DATE: 08/11/2017 SUBJECTIVE: The patient is in bed, in no acute distress, was seen earlier today in room 572, bed 2. No fevers and no chills. PHYSICAL EXAMINATION: VITAL SIGNS: Temperature is 98, blood pressure is 130/70, respiratory rate of 18. HEENT: Unremarkable. NECK: Supple. LUNGS: Have decreased breath sounds. HEART: Normal S1, S2. ABDOMEN: Soft, nontender. LABORATORY EXAMINATION: Reveals a white count of 4.1, hemoglobin of 10. Chemistries reveals a BUN of 13, creatinine of 0.5. Urinalysis is noted. Serology is negative. Microbiology reveals blood cultures are negative. ASSESSMENT AND PLAN: This is a 47-year-old who was seen earlier this morning in room 572, bed 2, who appears to be comfortable, systemic inflammatory response syndrome, diabetic ketoacidosis diabetic and cerebral palsy with cultures negative. Procalcitonin is negative. Chest x-ray is negative. LFTs are normal. Off of antibiotics. King Ford MD
== END 2017-08-11 14:07 | disposition home or self-care (01) | DRG 638 ==
LOC: ED 08:28 → ERH 11:11 → CCU 16:05 → 5RSO 08-09 13:31
PROVIDERS: ADMIT Family Medicine; ATTEND Family Medicine
DX: E10.10 Type 1 diabetes mellitus with ketoacidosis without coma (principal); R65.10 Systemic inflammatory response syndrome (SIRS) of non-infectious origin without acute organ dysfunction; E87.1 Hypo-osmolality and hyponatremia; I10 Essential (primary) hypertension; E78.5 Hyperlipidemia, unspecified; E86.0 Dehydration; G40.909 Epilepsy, unspecified, not intractable, without status epilepticus; G80.9 Cerebral palsy, unspecified; E87.5 Hyperkalemia; E10.649 Type 1 diabetes mellitus with hypoglycemia without coma; E78.00 Pure hypercholesterolemia, unspecified; F17.210 Nicotine dependence, cigarettes, uncomplicated; Z79.4 Long term (current) use of insulin; Z88.5 Allergy status to narcotic agent